=== PATIENT | male | born 1985 | race Caucasian/White ===

== ENCOUNTER 2016-07-04 10:51 | Inpatient (IN) | payer OTHER ==
[2016-07-04 11:50] VITALS: BMI 24.4
--- NOTE | 2016-07-04 14:17 | HP ---
CIWA Score - CIWA Score Nausea/Vomitin (N/V) Muscle Tremors: 4-Moderate,w/Arms Extend Anxiety: 4-Mod. Anxious/Guarded Agitation: 4-Moderately Restless Paroxysmal Sweats: 1-Minimal Palms Moist (HOT/COLD CHILLS) Orientation: 0-Oriented Tacttile Disturbances: 3-Moderate Itch/Numb/Burn Auditory Disturbances: 0-None Visual Disturbances: 0-None Headache: 1-Very Mild CIWA-Ar Total Score: [address] [facility] - HPI Chief Complaint: DETOX TX FOR ALCOHOL DEPENDENCE Allergies/Adverse Reactions: Allergies Allergy/AdvReac Type Severity Reaction Status Date / Time No Known Allergies Allergy Verified 07/04/16 12:46 History of Present Illness: 30 Y/O MALE WITH A HX OF ALCOHOL DEPENDENCE ON [facility] 110 MG PO DAILY SEEKING DETOX TX. PT WAS AT [facility] ER LAST NIGHT DUE TO WITHDRAWAL SX--NAUSEA, VOMITING,ABDOMINAL DISCOMFORT, ALCOHOL INTOXICATION. STATES HE RECIEVED IV FLUIDS AND IV MEDICATION AT THE ER. DISCHARGED THIS MORNING WITH RX FOR MAALOX AND PEPCID 20 MG PO BID. Exam Limitations: No Limitations - Ebola screening Have you traveled outside of the country in the last 21 days: No Have you had contact with anyone from an Ebola affected area: No Have you been sick,other than usual withdrawal symptoms: No Do you have a fever: No - Review of Systems Constitutional: Chills, Diaphoresis, Loss of Appetite, Night Sweats, Changes in sleep EENT: reports: Tearing, Nose Congestion, Dental Problems (MISSING TEETH) Respiratory: reports: No Symptoms reported Cardiac: reports: Chest Tightness (DUE TO ANXIETY) GI: reports: Constipated, Nausea, Poor Appetite, Poor Fluid Intake, Vomiting, Indigestion, Abdominal cramping : reports: No Symptoms Reported Musculoskeletal: reports: Back Pain, Joint Pain, Muscle Pain Integumentary: reports: No Symptoms Reported Neuro: reports: Headache, Tremors, Unsteady Gait, Dizziness Endocrine: reports: No Symptoms Reported Hematology: reports: No Symptoms Reported Psychiatric: reports: Orientated x3, Anxious, Depressed Other Systems: Reviewed and Negative Patient History - Patient Medical History Hx Anemia: No Hx Asthma: No Hx Chronic Obstructive Pulmonary Disease (COPD): No Hx Cardiac Disorders: No Hx Hypertension: No Hx Hypercholesterolemia: No HX Cerebrovascular Accident: No Hx Seizures: No Hx Diabetes: No Hx Gastrointestinal Disorders: Yes (acid reflux-RX FOR MAALOX AND PEPCID) Hx Genitourinary Disorders: No Hx Sexually Transmitted Disorders: No Hx Renal Disease (ESRD): No Hx Thyroid Disease: No Hx Human Immunodeficiency Virus (HIV): No (NEGATIVE HX) Hx Hepatitis C: Yes (NOT YET TREATED) Hx Depression: Yes (NO MEDS) Hx Suicide Attempt: No Hx Schizophrenia: No - Patient Surgical History Past Surgical History: No Hx Neurologic Surgery: No Hx Cataract Extraction: No Hx Cardiac Surgery: No Hx Lung Surgery: No Hx Breast Surgery: No Hx Breast Biopsy: No Hx Abdominal Surgery: No Hx Appendectomy: No Hx Cholecystectomy: No Hx Genitourinary Surgery: No Hx Section: No Hx Orthopedic Surgery: No Anesthesia Reaction: No - PPD History Previous Implant?: Yes Documented Results: Negative w/o proof PPD to be Administered?: Yes - Reproductive History Patient is a Female of Child Bearing Age (11 -55 yrs old): No (MALE) - Smoking Cessation Smoking history: Current every day smoker Have you smoked in the past 12 months: Yes Aproximately how many cigarettes per day: 10 Hx Chewing Tobacco Use: No Initiated information on smoking cessation: Yes 'Breaking Loose' booklet given: 07/04/16 - Substance & Tx. History Hx Alcohol Use: Yes (BEER/WINE) Hx Substance Use: Yes (COCAINE-SPORADIC USE) Substance Use Type: Alcohol, Cocaine Hx Substance Use Treatment: Yes ([facility]-DETOX) - Substances Abused Alcohol-beer/wine Route: Oral Frequency: Daily Amount used: 1 case/1 gal. Age of first use: 10 Date of Last Use: 07/04/16 Cocaine Route: Inhalation Frequency: 1-3 times last 30 days (SPORADIC USE) Amount used: 2-3 GMS Age of first use: 10 Date of Last Use: 07/02/16 Family Disease History - Family Disease History Family History: Denies Admission Physical Exam S - Vital Signs Vital Signs: Vital Signs - 24 hr 07/04/16 11:49 Temperature 97 F L Pulse Rate 80 Respiratory 20 Rate Blood Pressure 113/70 - Physical General Appearance: Yes: Moderate Distress, Irritable, Anxious HEENTM: Yes: EOMI, Normocephalic, SALTY, Pharynx Normal, Nasal Congestion Respiratory: Yes: Chest Non-Tender, Lungs Clear, Normal Breath Sounds, No Respiratory Distress Neck: Yes: No masses,lesions,Nodules, Supple, Trachea in good position Breast: Yes: Breast Exam Deferred Cardiology: Yes: Regular Rhythm, Regular Rate, S1, S2 Abdominal: Yes: Normal Bowel Sounds, Non Tender, Flat, Soft Genitourinary: Yes: Other (N/C) Back: Yes: Within Normal Limits Musculoskeletal: Yes: full range of Motion, Gait Steady Extremities: Yes: Normal Range of Motion, Non-Tender Neurological: Yes: plumbing manager II-XII NML intact, Fully Oriented, Alert, Motor Strength 5/5 Integumentary: Yes: Dry, Warm Lymphatic: Yes: Within Normal Limits - Diagnostic (1) Alcohol dependence with uncomplicated withdrawal Current Visit: Yes Status: Acute (2) Cocaine abuse Current Visit: Yes Status: Acute (3) History of hepatitis C Current Visit: Yes Status: Chronic (4) GERD (gastroesophageal reflux disease) Current Visit: Yes Status: Chronic Qualifiers: Esophagitis presence: without esophagitis Qualified Code(s): K21.9 - Gastro-esophageal reflux disease without esophagitis (5) Methadone maintenance therapy patient Current Visit: Yes Status: Chronic Cleared for Admission [facility] - Detox or Rehab [facility] Level of Care: Medically Managed Detox Regimen/Protocol: Librium S Breath Alcohol Content Breath Alcohol Content: 0 Urine Drug Screen - Results Drug Screen Negative: No Urine Drug Screen Results: RADHA-Cocaine, MTD-Methadone
[2016-07-04] MEDS ORDERED: MAGNESIUM HYDROX 2400MG/30ML ORAL SUSPENSION 30 ML CUP PO PRN (14:39)
[2016-07-04] MEDS ORDERED: ACETAMINOPHEN 325 MG TABLET (FP) PO PRN (14:39)
[2016-07-04] MEDS ORDERED: P-EPHED 60MG/TRIPROLIDI 2.5MG TABLET PO PRN (14:39)
[2016-07-04] MEDS ORDERED: MAG HYDROX/AL HYDROX/SIMETH 30 ML UNIT-DOSE CUP PO PRN (14:39)
[2016-07-04] MEDS ORDERED: MENTHOL/PHENOL 1 EACH UD MM PRN (14:39)
[2016-07-04] MEDS ORDERED: LOPERAMIDE HCL 2 MG CAPSULE PO PRN (14:39)
[2016-07-04] MEDS ORDERED: guaiFENesin/D-METHORPHAN HB 10 ML UNIT-DOSE CUPS PO PRN (14:39)
[2016-07-04] MEDS ORDERED: NICOTINE POLACRILEX 2 MG GUM BUC PRN (14:39)
[2016-07-04] MEDS ORDERED: MAGNESIUM CITRATE 300 ML BOTTLE PO PRN (14:39)
[2016-07-04] MEDS ORDERED: chlordiazePOXIDE HCL 25 MG CAPSULE PO ONE (14:50)
[2016-07-04] MEDS: NICOTINE 14 MG/24 HOURS TOPICAL PATCH TD SCH (15:29)
[2016-07-04] MEDS: IBUPROFEN 400 MG TABLET (FP) PO PRN (15:32)
[2016-07-04] MEDS: chlordiazePOXIDE HCL 25 MG CAPSULE PO SCH ×2 (18:02→22:54)
[2016-07-04 21:08] LABS: URINE APPEARANCE CLEAR; URINE BILIRUBIN NEGATIVE (NEGATIVE); URINE BLOOD NEGATIVE (NEGATIVE); URINE COLOR DKYELLOW; URINE GLUCOSE (UA) NEGATIVE (NEGATIVE); URINE KETONE TRACE (NEGATIVE); URINE LEUK ESTERASE NEGATIVE (NEGATIVE); URINE NITRITE NEGATIVE (NEGATIVE); URINE PROTEIN NEGATIVE (NEGATIVE); URINE UROBILINOGEN 2.0 E.U/dl E.U./dl (0.2-1.0)
[2016-07-04] MEDS ORDERED: GABAPENTIN 300 MG CAPSULE (FP) PO SCH (22:00)
[2016-07-04] MEDS: THIAMINE HCL 100 MG TABLET (FP) PO SCH (22:53)
[2016-07-04] MEDS: GABAPENTIN 300 MG CAPSULE (FP) PO SCH (22:54)
[2016-07-04] MEDS: diphenhydrAMINE HCL 50 MG CAPSULE PO PRN (22:54)
[2016-07-05] MEDS: chlordiazePOXIDE HCL 25 MG CAPSULE PO SCH ×4 (05:03→23:03)
[2016-07-05] MEDS: GABAPENTIN 300 MG CAPSULE (FP) PO SCH ×4 (06:09→23:03)
[2016-07-05] MEDS ORDERED: METHADONE HCL 10 MG TABLET PO ONE (09:52)
[2016-07-05 10:04] LABS: MCH 31.6 pg (25.7-33.7); MCHC 34.6 g/dl (32.0-35.9); MEAN CELL VOLUME 91.2 fl (80-96); MEAN PLT VOLUME 8.6 fl (7.5-11.1); PLATELET COUNT 124 K/MM3 (134-434); WHITE BLOOD COUNT 2.6 K/mm3 (4.0-10.0)
[2016-07-05] MEDS ORDERED: METHADONE 80 MG, METHADONE 30 MG PO ONE (10:05)
[2016-07-05] MEDS ORDERED: METHADONE HCL 10 MG TABLET ONE (10:20)
[2016-07-05] MEDS ORDERED: METHADONE HCL 40 MG DISPERSABLE TABLET ONE (10:20)
[2016-07-05] MEDS: PRENATAL VITAMINS W/ FOLIC ACID TABLET (FP) PO SCH (10:21)
[2016-07-05] MEDS: PANTOPRAZOLE 40 MG TABLET (FP) PO SCH (10:22)
[2016-07-05] MEDS: NICOTINE 14 MG/24 HOURS TOPICAL PATCH TD SCH (10:23)
--- NOTE | 2016-07-05 10:51 | PN ---
S CIWA - CIWA Score Nausea/Vomitin-Mild Nausea/No Vomiting Muscle Tremors: 4-Moderate,w/Arms Extend Anxiety: 3 Agitation: 4-Moderately Restless Paroxysmal Sweats: 3 Orientation: 0-Oriented Tacttile Disturbances: 0-None Auditory Disturbances: 0-None Visual Disturbances: 0-None Headache: 2-Mild CIWA-Ar Total Score: 17 [facility] Progress Note (SOAP) Subjective: nausea sweats shakes interrupted sleep body aches irritable Objective: 07/05/16 10:50 Vital Signs Temperature 96.8 F L 07/05/16 10:47 Pulse Rate 70 07/05/16 10:47 Respiratory Rate 18 07/05/16 10:47 Blood Pressure 113/61 07/05/16 10:47 O2 Sat by Pulse Oximetry (%) Laboratory Tests 07/04/16 07/05/16 15:00 06:00 WBC 2.6 L RBC 4.33 Hgb 13.7 Hct 39.5 MCV 91.2 MCHC 34.6 RDW 13.0 Plt Count 124 L MPV 8.6 Urine Color Dkyellow Urine Appearance Clear Urine pH 6.0 Urine Protein Negative Urine Glucose (UA) Negative Urine Ketones Trace H Urine Blood Negative Urine Nitrite Negative Urine Bilirubin Negative Urine Urobilinogen 2.0 e.u/dl Ur Leukocyte Esterase Negative labs pending awake/alert ambulating no acute distress Assessment: 07/05/16 10:52 withdrawal sx Plan: continue detox increase fluids reglan po labs pending
--- NOTE | 2016-07-05 11:45 | EKG ---
Test Reason : Blood Pressure : / mmHG Vent. Rate : 066 BPM Atrial Rate : 066 BPM P-R Int : 140 ms QRS Dur : 078 ms QT Int : 422 ms P-R-T Axes : 063 050 017 degrees QTc Int : 442 ms NORMAL SINUS RHYTHM NONSPECIFIC ST ABNORMALITY NO PREVIOUS ECGS AVAILABLE Confirmed by EDGAR LIN MD ([id number]) on 07/05/2016 11:45:07 AM Referred By: Confirmed By:EDGAR LIN MD
[2016-07-05 13:50] LABS: CALCIUM 8.6 mg/dL (8.5-10.1)
[2016-07-05 13:55] LABS: ALBUMIN 3.7 g/dl (3.4-5.0); ALK PHOS 77 U/L (45-117); ANION GAP 9 (8-16); BILIRUBIN,TOTAL 1.7 mg/dL (0.2-1.0); CO2 31 mmol/L (21-32); COCKROFT - GAULT 134.13; CREATININE 0.7 mg/dL (0.7-1.3); GLUCOSE,RANDOM 83 mg/dL (74-106); SGOT/AST 130 U/L (15-37); SGPT/ALT 101 U/L (12-78); TOT PROT 7.2 g/dl (6.4-8.2)
--- NOTE | 2016-07-05 14:46 | CONSULT ---
[facility] Psychiatric Consult - Data Date of interview: 07/05/16 Admission source: [facility] Identifying data: Readmission to [facility] for this 30 y/o male seeking detox treatment for alcohol,opioid and cocaine dependence.Patient is single without children,domiciled and reportedly employed. Substance Abuse History: - Smoking Cessation. Smoking history: Current every day smoker. Have you smoked in the past 12 months: Yes. Aproximately how many cigarettes per day: 10. Hx Chewing Tobacco Use: No. Initiated information on smoking cessation: Yes. 'Breaking Loose' booklet given: 07/04/16. - Substance & Tx. History. Hx Alcohol Use: Yes (BEER/WINE). Hx Substance Use: Yes (COCAINE -SPORADIC USE). Substance Use Type: Alcohol, Cocaine. Hx Substance Use Treatment: Yes ([facility]-DETOX). - Substances Abused. Alcohol-beer/wine. Route: Oral. Frequency: Daily. Amount used: 1 case/1 gal. Age of first use: 10. Date of Last Use: 07/04/16. Cocaine. Route: Inhalation. Frequency: 1- 3 times last 30 days (SPORADIC USE). Amount used: 2-3 GMS. Age of first use: 10. Date of Last Use: 07/02/16. Confimed by patient. Medical History: Hepatitis C,herniated disc,GERD and lower back pain.No reported allergies. Psychiatric History: Patient denies. Physical/Sexual Abuse/Trauma History: Patient denies. Additional Comment: Urine Drug Screen Results: RADHA-Cocaine, MTD-Methadone.Noted. Mental Status Exam - Mental Status Exam Alert and Oriented to: Time, Place, Person Cognitive Function: Good Patient Appearance: Well Groomed ([place] flag tattooed on right side of neck) Mood: Withdrawn, Anxious Affect: Mood Congruent Patient Behavior: Sedated (mildly sedated), Fatigued Speech Pattern: Clear, Appropriate Voice Loudness: Normal Thought Process: Goal Oriented Thought Disorder: Not Present Hallucinations: Denies Suicidal Ideation: Denies Homicidal Ideation: Denies Insight/Judgement: Poor Sleep: Fair Appetite: Good Muscle strength/Tone: Normal Gait/Station: Normal Psychiatric Findings - Problem List ([place] 1, 2,3) (1) Alcohol dependence with uncomplicated withdrawal Current Visit: Yes Status: Acute (2) Opioid dependence on agonist therapy Current Visit: Yes Status: Acute (3) Cocaine dependence Current Visit: Yes Status: Acute (4) Nicotine dependence Current Visit: Yes Status: Acute (5) Substance induced mood disorder Current Visit: Yes Status: Acute (6) GERD (gastroesophageal reflux disease) Current Visit: Yes Status: Chronic Qualifiers: Esophagitis presence: without esophagitis Qualified Code(s): K21.9 - Gastro-esophageal reflux disease without esophagitis (7) History of hepatitis C Current Visit: Yes Status: Chronic - Initial Treatment Plan Initial Treatment Plan: Psychoeducation.Detoxification in progress.Observation.
[2016-07-05] MEDS: hydrOXYzine PAMOATE 25 MG CAPSULE (FP) PO PRN (15:54)
[2016-07-05] MEDS: chlordiazePOXIDE HCL 25 MG CAPSULE PO PRN ×2 (15:54→19:52)
--- NOTE | 2016-07-05 19:19 | PN ---
[facility] Progress Note Note: Psychiatry Attending's note (addendum) : Met with Mr Gusman in the presence of nurse Maxi Whatley and counselor Carolina Hong. Issue : patient complains that " no psychiatrist saw me today about my medications." He has also complained of being " threatened " by the psychiatrist in the follow up interview. Clarification : Patient was evaluated by me between 11:30 AM and 12 N today.Lightly sedated on examination. Became more alert as interview progressed.He denied history of psychiatric hospitalizations. Denied taking psychotropic medications (although pharmacy claims indicate filled scripts for neurontin). Re-engaged by sports writer after he approached nursing staff later with request for a psychiatric evaluation. Patient was informed that he was already assessed in the morning,that he will be followed up if clinically indicated. According to nursing staff,Mr Gusman declared his intention to leave AMA ( against medical advice) if not prescribed Adderall. Met with the patient a second time at bedside.Reminded of first interview and informed of unit rules/regulations regarding medications/consults. I provided Mr Gusman with clues (foodtray was presented to him by sports writer at 12: 15 pm/being oriented to time by MD) to stimulate recall. Now,at this meeting,Mr Gusman is able to identify sports writer and aknowledge previous encounter in late morning. He,in this re-interview,reported past diagnosis of ADHD,Anxiety Disorder,MDD and complained about getting less gabapentin than usual. Current medication regimen is discussed with the patient : dose of neurontin will not exceed 2400 mg/day.He agreed with this plan. Mr Gusman was also inquisitive about scripts for adderall.He is informed that he will have to address that issue with an OPD psychiatrist. He is made aware that a referral will be provided to him at time of his discharge from this program. Patient became apologetic." I was confused earlier.Nobody threatened me." Patient changed his mind about leaving this program. He is willing to continue detox treatment at [facility].
[2016-07-05] MEDS: THIAMINE HCL 100 MG TABLET (FP) PO SCH (23:03)
[2016-07-05] MEDS: diphenhydrAMINE HCL 50 MG CAPSULE PO PRN (23:04)
[2016-07-06] MEDS: chlordiazePOXIDE HCL 25 MG CAPSULE PO SCH ×2 (05:53→11:45)
[2016-07-06] MEDS ORDERED: METHADONE HCL 40 MG DISPERSABLE TABLET ONE (05:54)
[2016-07-06] MEDS ORDERED: METHADONE HCL 10 MG TABLET ONE (05:54)
[2016-07-06] MEDS: METHADONE 80 MG, METHADONE 30 MG PO SCH (05:55)
[2016-07-06] MEDS ORDERED: METHADONE HCL 40 MG DISPERSABLE TABLET PO SCH (06:00)
[2016-07-06] MEDS: GABAPENTIN 300 MG CAPSULE (FP) PO SCH ×4 (07:43→22:29)
[2016-07-06] MEDS: PANTOPRAZOLE 40 MG TABLET (FP) PO SCH (11:43)
[2016-07-06] MEDS: PRENATAL VITAMINS W/ FOLIC ACID TABLET (FP) PO SCH (11:44)
[2016-07-06] MEDS: NICOTINE 14 MG/24 HOURS TOPICAL PATCH TD SCH (11:45)
[2016-07-06] MEDS: chlordiazePOXIDE HCL 25 MG CAPSULE PO PRN (12:27)
[2016-07-06] MEDS: IBUPROFEN 400 MG TABLET (FP) PO PRN (13:40)
[2016-07-06] MEDS: hydrOXYzine PAMOATE 25 MG CAPSULE (FP) PO PRN ×2 (13:40→19:44)
--- NOTE | 2016-07-06 13:41 | PN ---
[facility] CIWA - CIWA Score Nausea/Vomitin Muscle Tremors: 2 Anxiety: 2 Agitation: 2 Paroxysmal Sweats: 2 Orientation: 0-Oriented Tacttile Disturbances: 1-Very Mild Itch/Numbness Auditory Disturbances: 0-None Visual Disturbances: 2-Mild Sensitivity Headache: 2-Mild CIWA-Ar Total Score: 15 [facility] Progress Note (SOAP) Subjective: Shakes, sweats, abdominal cramps and sleep interruption Objective: 07/06/16 13:40 Vital Signs - 8 hr 07/06/16 06:00 Temperature 98.1 F Pulse Rate 76 Respiratory 18 Rate Blood Pressure 113/68 Laboratory Last Values WBC 2.6 K/mm3 (4.0-10.0) L 07/05/16 06:00 RBC 4.33 M/mm3 (4.00-5.60) 07/05/16 06:00 Hgb 13.7 GM/dL (11.7-16.9) 07/05/16 06:00 Hct 39.5 % (35.4-49) 07/05/16 06:00 MCV 91.2 fl (80-96) 07/05/16 06:00 MCHC 34.6 g/dl (32.0-35.9) 07/05/16 06:00 RDW 13.0 % (11.9-15.9) 07/05/16 06:00 Plt Count 124 K/MM3 (134-434) L 07/05/16 06:00 MPV 8.6 fl (7.5-11.1) 07/05/16 06:00 Sodium 136 mmol/L (136-145) 07/05/16 06:00 Potassium 4.1 mmol/L (3.5-5.1) 07/05/16 06:00 Chloride 96 mmol/L (98-107) L 07/05/16 06:00 Carbon Dioxide 31 mmol/L (21-32) 07/05/16 06:00 Anion Gap 9 (8-16) 07/05/16 06:00 BUN 8 mg/dL (7-18) 07/05/16 06:00 Creatinine 0.7 mg/dL (0.7-1.3) 07/05/16 06:00 Creat Clearance w eGFR > 60 (>60) 07/05/16 06:00 Random Glucose 83 mg/dL (74-106) 07/05/16 06:00 Calcium 8.6 mg/dL (8.5-10.1) 07/05/16 06:00 Total Bilirubin 1.7 mg/dL (0.2-1.0) H 07/05/16 06:00 AST 130 U/L (15-37) H 07/05/16 06:00 ALT 101 U/L (12-78) H 07/05/16 06:00 Alkaline Phosphatase 77 U/L (45-117) 07/05/16 06:00 Total Protein 7.2 g/dl (6.4-8.2) 07/05/16 06:00 Albumin 3.7 g/dl (3.4-5.0) 07/05/16 06:00 Urine Color Dkyellow 07/04/16 15:00 Urine Appearance Clear 07/04/16 15:00 Urine pH 6.0 (5.0-8.0) 07/04/16 15:00 Ur Specific [place] 1.020 (1.005-1.025) 07/04/16 15:00 Urine Protein Negative (NEGATIVE) 07/04/16 15:00 Urine Glucose (UA) Negative (NEGATIVE) 07/04/16 15:00 Urine Ketones Trace (NEGATIVE) H 07/04/16 15:00 Urine Blood Negative (NEGATIVE) 07/04/16 15:00 Urine Nitrite Negative (NEGATIVE) 07/04/16 15:00 Urine Bilirubin Negative (NEGATIVE) 07/04/16 15:00 Urine Urobilinogen 2.0 e.u/dl E.U./dl (0.2-1.0) 07/04/16 15:00 Ur Leukocyte Esterase Negative (NEGATIVE) 07/04/16 15:00 RPR Titer Nonreactive (NONREACTIVE) 07/05/16 06:00 labs noted Assessment: 07/06/16 13:41 withdrawal sx Plan: continue detox
[2016-07-06] MEDS: chlordiazePOXIDE 5 MG CAPSULE PO SCH ×2 (17:18→22:28)
[2016-07-06] MEDS: THIAMINE HCL 100 MG TABLET (FP) PO SCH (22:29)
[2016-07-06] MEDS: diphenhydrAMINE HCL 50 MG CAPSULE PO PRN (22:29)
[2016-07-07] MEDS ORDERED: METHADONE HCL 40 MG DISPERSABLE TABLET ONE (04:58)
[2016-07-07] MEDS ORDERED: METHADONE HCL 10 MG TABLET ONE (04:58)
[2016-07-07] MEDS: METHADONE 80 MG, METHADONE 30 MG PO SCH (05:34)
[2016-07-07] MEDS: chlordiazePOXIDE 5 MG CAPSULE PO SCH ×2 (05:34→10:09)
[2016-07-07] MEDS: GABAPENTIN 300 MG CAPSULE (FP) PO SCH ×4 (07:56→22:58)
[2016-07-07] MEDS: PANTOPRAZOLE 40 MG TABLET (FP) PO SCH (10:09)
[2016-07-07] MEDS: PRENATAL VITAMINS W/ FOLIC ACID TABLET (FP) PO SCH (10:09)
[2016-07-07] MEDS: NICOTINE 14 MG/24 HOURS TOPICAL PATCH TD SCH (10:10)
--- NOTE | 2016-07-07 11:55 | PN ---
[facility] Progress Note (SOAP) Subjective: Sweating,interrupted sleep,restless Objective: 07/07/16 11:55 Vital Signs - 8 hr 07/07/16 07/07/16 06:00 09:46 Temperature 98.6 F 98.1 F Pulse Rate 73 80 Respiratory 16 16 Rate Blood Pressure 100/59 117/73 Laboratory Last Values WBC 2.6 K/mm3 (4.0-10.0) L 07/05/16 06:00 RBC 4.33 M/mm3 (4.00-5.60) 07/05/16 06:00 Hgb 13.7 GM/dL (11.7-16.9) 07/05/16 06:00 Hct 39.5 % (35.4-49) 07/05/16 06:00 MCV 91.2 fl (80-96) 07/05/16 06:00 MCHC 34.6 g/dl (32.0-35.9) 07/05/16 06:00 RDW 13.0 % (11.9-15.9) 07/05/16 06:00 Plt Count 124 K/MM3 (134-434) L 07/05/16 06:00 MPV 8.6 fl (7.5-11.1) 07/05/16 06:00 Sodium 136 mmol/L (136-145) 07/05/16 06:00 Potassium 4.1 mmol/L (3.5-5.1) 07/05/16 06:00 Chloride 96 mmol/L (98-107) L 07/05/16 06:00 Carbon Dioxide 31 mmol/L (21-32) 07/05/16 06:00 Anion Gap 9 (8-16) 07/05/16 06:00 BUN 8 mg/dL (7-18) 07/05/16 06:00 Creatinine 0.7 mg/dL (0.7-1.3) 07/05/16 06:00 Creat Clearance w eGFR > 60 (>60) 07/05/16 06:00 Random Glucose 83 mg/dL (74-106) 07/05/16 06:00 Calcium 8.6 mg/dL (8.5-10.1) 07/05/16 06:00 Total Bilirubin 1.7 mg/dL (0.2-1.0) H 07/05/16 06:00 AST 130 U/L (15-37) H 07/05/16 06:00 ALT 101 U/L (12-78) H 07/05/16 06:00 Alkaline Phosphatase 77 U/L (45-117) 07/05/16 06:00 Total Protein 7.2 g/dl (6.4-8.2) 07/05/16 06:00 Albumin 3.7 g/dl (3.4-5.0) 07/05/16 06:00 Urine Color Dkyellow 07/04/16 15:00 Urine Appearance Clear 07/04/16 15:00 Urine pH 6.0 (5.0-8.0) 07/04/16 15:00 Ur Specific [place] 1.020 (1.005-1.025) 07/04/16 15:00 Urine Protein Negative (NEGATIVE) 07/04/16 15:00 Urine Glucose (UA) Negative (NEGATIVE) 07/04/16 15:00 Urine Ketones Trace (NEGATIVE) H 07/04/16 15:00 Urine Blood Negative (NEGATIVE) 07/04/16 15:00 Urine Nitrite Negative (NEGATIVE) 07/04/16 15:00 Urine Bilirubin Negative (NEGATIVE) 07/04/16 15:00 Urine Urobilinogen 2.0 e.u/dl E.U./dl (0.2-1.0) 07/04/16 15:00 Ur Leukocyte Esterase Negative (NEGATIVE) 07/04/16 15:00 RPR Titer Nonreactive (NONREACTIVE) 07/05/16 06:00 labs noted Assessment: 07/07/16 11:55 Withdrawal sx. Plan: Continue detox
[2016-07-07] MEDS: chlordiazePOXIDE HCL 25 MG CAPSULE PO PRN (12:52)
[2016-07-07] MEDS: chlordiazePOXIDE HCL 10 MG CAPSULE PO SCH ×2 (17:31→22:58)
[2016-07-07] MEDS ORDERED: CYCLOBENZAPRINE HCL 10 MG TABLET (FP) PO PRN (20:38)
--- NOTE | 2016-07-07 20:42 | PN ---
[facility] Progress Note Note: withdrawal ,aching pain,interrupted sleep,flexeril 10 mgs po tid prn
[2016-07-07] MEDS: THIAMINE HCL 100 MG TABLET (FP) PO SCH (22:58)
[2016-07-07] MEDS: diphenhydrAMINE HCL 50 MG CAPSULE PO PRN (22:58)
[2016-07-08] MEDS ORDERED: METHADONE HCL 10 MG TABLET ONE (04:37)
[2016-07-08] MEDS ORDERED: METHADONE HCL 40 MG DISPERSABLE TABLET ONE (04:37)
[2016-07-08] MEDS: METHADONE 80 MG, METHADONE 30 MG PO SCH (06:27)
[2016-07-08] MEDS: chlordiazePOXIDE HCL 10 MG CAPSULE PO SCH ×2 (06:29→10:11)
[2016-07-08] MEDS: GABAPENTIN 300 MG CAPSULE (FP) PO SCH ×2 (06:30→10:11)
[2016-07-08 06:32] VITALS: BP 105/54; PULSE 73; TEMP 97.7
--- NOTE | 2016-07-08 07:16 | PN ---
S Progress Note Note: constipated,fleet enema ordered as patient's requested
[2016-07-08] MEDS ORDERED: SODIUM PHOSPHATE/NA BIPHOS 133 ML ENEMA PR ONE (08:25)
--- NOTE | 2016-07-08 09:06 | DS ---
[facility] Detox Discharge Summary Admission Date: 07/04/16 Discharge Date: 07/08/16 - History Present History: Alcohol Dependence, Cocaine Dependence, MMTP - Physical Exam Results Vital Signs: Vital Signs Temperature 97.7 F 07/08/16 06:31 Pulse Rate 73 07/08/16 06:31 Respiratory Rate 18 07/08/16 06:31 Blood Pressure 105/54 07/08/16 06:31 O2 Sat by Pulse Oximetry (%) - Medication Discharge Medications: Ambulatory Orders Famotidine [Pepcid -] 20 mg PO DAILY 07/04/16 Gabapentin [Neurontin -] 1,200 mg PO HS 07/04/16 Gabapentin [Neurontin -] 800 mg PO Q8H 07/04/16 - Diagnosis (1) Alcohol dependence with uncomplicated withdrawal Current Visit: Yes Status: Chronic (2) Cocaine dependence Current Visit: Yes Status: Chronic Qualifiers: Substance use status: uncomplicated Qualified Code(s): F14.20 - Cocaine dependence, uncomplicated (3) Nicotine dependence Current Visit: Yes Status: Chronic Qualifiers: Nicotine product type: cigarettes Substance use status: uncomplicated Qualified Code(s): F17.210 - Nicotine dependence, cigarettes, uncomplicated (4) Opioid dependence on agonist therapy Current Visit: Yes Status: Acute (5) Substance induced mood disorder Current Visit: Yes Status: Acute (6) GERD (gastroesophageal reflux disease) Current Visit: Yes Status: Chronic Qualifiers: Esophagitis presence: without esophagitis Qualified Code(s): K21.9 - Gastro-esophageal reflux disease without esophagitis (7) History of hepatitis C Current Visit: Yes Status: Chronic (8) Methadone maintenance therapy patient Current Visit: Yes Status: Chronic - AMA Did Patient Leave Against Medical Advice: No
[2016-07-08] MEDS: PRENATAL VITAMINS W/ FOLIC ACID TABLET (FP) PO SCH (10:10)
[2016-07-08] MEDS: PANTOPRAZOLE 40 MG TABLET (FP) PO SCH (10:11)
[2016-07-08] MEDS: NICOTINE 14 MG/24 HOURS TOPICAL PATCH TD SCH (10:13)
== END 2016-07-08 12:18 | disposition home or self-care (01) | DRG 773 ==
LOC: YASAS 10:51 → Y6N 13:35
PROVIDERS: ADMIT Internal Medicine Addiction Medicine; ATTEND Internal Medicine Addiction Medicine
PROC: HZ2ZZZZ Detoxification Services for Substance Abuse Treatment (ICD-10-PCS; principal; 2016-07-08)
DX: F11.20 Opioid dependence, uncomplicated (principal); F10.230 Alcohol dependence with withdrawal, uncomplicated; F14.20 Cocaine dependence, uncomplicated; F19.24 Other psychoactive substance dependence with psychoactive substance-induced mood disorder; F17.210 Nicotine dependence, cigarettes, uncomplicated; F32.9 Major depressive disorder, single episode, unspecified; B18.2 Chronic viral hepatitis C; K21.9 Gastro-esophageal reflux disease without esophagitis
CPT/HCPCS: 36415; 80053; 81003; 85027; 86593; 93005; 93010

== ENCOUNTER 2019-11-26 16:22 | Inpatient (IN) | payer OTHER ==
--- NOTE | 2019-11-26 17:38 | B[facility].RME ---
Substance Use & Tx History - Substance Use History Alcohol Substance amount: 5 pints vodka Frequency of use: Daily Substance route: Oral Date of Last Use: 11/26/19 - Last Treatment Date of last treatment: 07/04/2016-07/08/2016 Where was last treatment: Detox Physical/Psych/Mental Status - Behavior Eye Contact: Normal - Cooperativeness Cooperativeness: Cooperative - Thinking Thought Processes: Logical Thought content: Future oriented - Physical Health Problems Is patient presently having any pain?: Yes (body aches) Does patient presently have any injuries (include location): No Does patient currently have a fever: No Is patient : No CIWA Nausea/Vomitin-Mild Nausea/No Vomiting Muscle Tremors: 3 Anxiety: 4-Mod. Anxious/Guarded Agitation: 4-Moderately Restless Paroxysmal Sweats: 2 Orientation: 0-Oriented Tacttile Disturbances: 0-None Auditory Disturbances: 0-None Visual Disturbances: 0-None Headache: 0-None Present CIWA-Ar Total Score: 14 Treatment Recommendation - Level of Care Level of Care: Opioid Treatment Program (OTP) (alcohol detoxification, on MMTP)
--- NOTE | 2019-11-26 17:54 | HP ---
CIWA Score Nausea/Vomitin-Mild Nausea/No Vomiting Muscle Tremors: 3 Anxiety: 4-Mod. Anxious/Guarded Agitation: 4-Moderately Restless Paroxysmal Sweats: 2 Orientation: 0-Oriented Tacttile Disturbances: 0-None Auditory Disturbances: 0-None Visual Disturbances: 0-None Headache: 0-None Present CIWA-Ar Total Score: 14 - Admission Criteria OASAS Guidelines: Admission for Medically Managed Detox: Requires at least one of the followin. CIWA greater than 12 2. Seizures within the past 24 hours 3. Delirium tremens within the past 24 hours 4. Hallucinations within the past 24 hours 5. Acute intervention needed for co occurring medical disorder 6. Acute intervention needed for co occurring psychiatric disorder 7. Severe withdrawal that cannot be handled at a lower level of care (continued vomiting, continued diarrhea, abnormal vital signs) requiring intravenous medication and/or fluids 8. Admitting History and Physical - Smoking History Smoking history: Current every day smoker Have you smoked in the past 12 months: Yes Aproximately how many cigarettes per day: 10 - Alcohol/Substance Use Hx Alcohol Use: Yes (BEER/WINE) Admission [facility] Chief Complaint: Seeking admission to detox from alcohol, on methadone maintenance therapy Allergies/Adverse Reactions: Allergies Allergy/AdvReac Type Severity Reaction Status Date / Time No Known Allergies Allergy Verified 11/26/19 19:51 History of Present Illness: 33 years old male with a long history of alcohol dependence is seeking admission to detox. His last admission was at [facility]. He reports that he drinks 5 pints Vodka daily. He has medical history of GERD, Hep. C (treated), psych history of depression, anxiety and ADHD. He denies suicidal ideation at this time. He is unemployed, homeless and denies any legal issues. 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 He is on methadone 110mg tablets oral daily. Dose is yet to be verified by the nurse. Exam Limitations: No Limitations - Ebola screening Have you traveled outside of the country in the last 21 days: No Have you had contact with anyone from an Ebola affected area: No Have you been sick,other than usual withdrawal symptoms: No Do you have a fever: No - Review of Systems Constitutional: Chills, Malaise, Changes in sleep EENT: reports: No Symptoms Reported Respiratory: reports: No Symptoms reported Cardiac: reports: No Symptoms Reported GI: reports: Nausea, Poor Appetite, Poor Fluid Intake, Abdominal cramping : reports: No Symptoms Reported Musculoskeletal: reports: Back Pain, Muscle Pain Integumentary: reports: Dryness, Flushing Neuro: reports: Tremors Endocrine: reports: No Symptoms Reported Hematology: reports: No Symptoms Reported Psychiatric: reports: Mood/Affect Appropiate, Anxious Other Systems: Reviewed and Negative Patient History - Patient Medical History Hx Anemia: No Hx Asthma: No Hx Chronic Obstructive Pulmonary Disease (COPD): No Hx Cardiac Disorders: No Hx Hypertension: No Hx Hypercholesterolemia: No HX Cerebrovascular Accident: No Hx Seizures: No Hx Diabetes: No Hx Gastrointestinal Disorders: Yes (GERD) Hx Genitourinary Disorders: No Hx Sexually Transmitted Disorders: No Hx Renal Disease (ESRD): No Hx Thyroid Disease: No Hx Human Immunodeficiency Virus (HIV): No (Negative 2020) Hx Hepatitis C: Yes (Treated) Hx Depression: Yes (+ Anxiety - Not on medication) Hx Suicide Attempt: No (Denies suicidal ideation at this time.) Hx Bipolar Disorder: No Hx Schizophrenia: No - Patient Surgical History Past Surgical History: No Hx Neurologic Surgery: No Hx Cataract Extraction: No Hx Cardiac Surgery: No Hx Lung Surgery: No Hx Abdominal Surgery: No Hx Appendectomy: No Hx Cholecystectomy: No Hx Genitourinary Surgery: No Hx Orthopedic Surgery: No Anesthesia Reaction: No - PPD History Previous Implant?: Yes Documented Results: Negative w/o proof PPD to be Administered?: Yes - Reproductive History Patient is a Female of Child Bearing Age (11 -55 yrs old): No (Male) - Smoking Cessation Smoking history: Current every day smoker Have you smoked in the past 12 months: Yes Aproximately how many cigarettes per day: 20 Hx Chewing Tobacco Use: No Initiated information on smoking cessation: Yes 'Breaking Loose' booklet given: 11/26/19 - Substance & Tx. History Hx Alcohol Use: Yes Hx Substance Use: Yes Substance Use Type: Alcohol, Cocaine, Prescribed (Methadone 110mg daily with [place]) Admission Physical Exam [facility] - Physical General Appearance: Yes: Moderate Distress, Tremorous, Irritable, Anxious HEENTM: Yes: Within Normal Limits Respiratory: Yes: Lungs Clear, Normal Breath Sounds, No Respiratory Distress Neck: Yes: Within Normal Limits Breast: Yes: Breast Exam Deferred Cardiology: Yes: Within Normal Limits Abdominal: Yes: Normal Bowel Sounds, Soft Genitourinary: Yes: Within Normal Limits Back: Yes: Normal Inspection Musculoskeletal: Yes: Back pain Extremities: Yes: Tremors Neurological: Yes: Within Normal Limits Integumentary: Yes: Warm Lymphatic: Yes: Within Normal Limits - Diagnostic (1) Depression Current Visit: Yes Status: Acute (2) Anxiety Current Visit: Yes Status: Chronic (3) ADHD Current Visit: Yes Status: Chronic Qualifiers: Attention deficit-hyperactivity disorder type: unspecified Qualified Code(s): F90.9 - Attention-deficit hyperactivity disorder, unspecified type (4) Alcohol dependence with uncomplicated withdrawal Current Visit: Yes Status: Acute (5) Cocaine dependence Current Visit: Yes Status: Chronic Qualifiers: Substance use status: uncomplicated Qualified Code(s): F14.20 - Cocaine dependence, uncomplicated (6) GERD (gastroesophageal reflux disease) Current Visit: Yes Status: Chronic Qualifiers: Esophagitis presence: without esophagitis Qualified Code(s): K21.9 - Gastro-esophageal reflux disease without esophagitis (7) History of hepatitis C Current Visit: Yes Status: Chronic (8) Methadone maintenance therapy patient Current Visit: Yes Status: Chronic (9) Nicotine dependence Current Visit: Yes Status: Chronic Qualifiers: Nicotine product type: cigarettes Substance use status: uncomplicated Qualified Code(s): F17.210 - Nicotine dependence, cigarettes, uncomplicated Cleared for Admission [facility] - Detox or Rehab [facility] Level of Care: Medically Managed Detox Regimen/Protocol: Librium Claeared for Rehab Admission: No Breathalyzer - Breathalyzer Breathalyzer: 0 Urine Drug Screen - Test Device Lot number: [id number] Expiration date: 06/08/21 - Control Is test valid?: Yes - Results Drug screen NEGATIVE: No Urine drug screen results: RADHA-Cocaine, MOP-Opiates, MTD-Methadone Inpatient Rehab Admission - Rehab Decision to Admit Inpatient rehab admission?: No
[2019-11-26] MEDS ORDERED: IBUPROFEN 400 MG TABLET (FP) PO PRN (18:18)
[2019-11-26] MEDS ORDERED: BISMUTH SUBSALICYLATE 524 MG/30 ML UD PO PRN (18:18)
[2019-11-26] MEDS ORDERED: MENTHOL/PHENOL 1 EACH UD MM PRN (18:18)
[2019-11-26] MEDS ORDERED: MAGNESIUM HYDROX 2400MG/30ML ORAL SUSPENSION 30 ML CUP PO PRN (18:18)
[2019-11-26] MEDS ORDERED: MAGNESIUM CITRATE 300 ML BOTTLE PO PRN (18:18)
[2019-11-26] MEDS ORDERED: ONDANSETRON *ODT* 4 MG TABLET SL PRN (18:18)
[2019-11-26] MEDS ORDERED: MAG HYDROX/AL HYDROX/SIMETH 30 ML UNIT-DOSE CUP PO PRN (18:18)
[2019-11-26] MEDS ORDERED: ACETAMINOPHEN 325 MG TABLET (FP) PO PRN (18:18)
[2019-11-26] MEDS ORDERED: chlordiazePOXIDE HCL 25 MG CAPSULE PO PRN (19:34)
--- OUTSIDE RECORDS SUMMARY | 2019-11-26 20:07 | XMS ---
:1985 Author Organization [facility] Care Team Providers Name Role Phone MADAY CASTILLO DO Unavailable Unavailable MD David Quiroz Unavailable Unavailable Juan Luis Flores Unavailable Unavailable BLUE MNOTERO MD Unavailable Unavailable Lesly MONTERO MD Unavailable Unavailable Lesly MONTERO MD Unavailable Unavailable Lesly MONTERO MD Unavailable Unavailable Re-disclosure Warning The records that you are about to access may contain information from federally- assisted alcohol or drug abuse programs. If such information is present, then the following federally mandated warning applies: This information has been disclosed to you from records protected by federal confidentiality rules (42 CFR part 2). The federal rules prohibit you from making any further disclosure of this information unless further disclosure is expressly permitted by the written consent of the person to whom it pertains or as otherwise permitted by 42 CFR part 2. A general authorization for the release of medical or other information is NOT sufficient for this purpose. The Federal rules restrict any use of the information to criminally investigate or prosecute any alcohol or drug abuse patient.The records that you are about to access may contain highly sensitive health information, the redisclosure of which is protected by Article 27-F of the [facility] Public Health law. If you continue you may haveaccess to information: Regarding HIV / AIDS; Provided by facilities licensed or operated by the [facility] Office of Mental Health; or Provided by the [facility] Office for People With Developmental Disabilities. If such information is present, then the following [facility] mandated warning applies: This information has been disclosed to you from confidential records which are protected by state law. State law prohibits you from making any further disclosure of this information without the specific written consent of the person to whom it pertains, or as otherwise permitted by law. Any unauthorized further disclosure in violation of state law may result in a fine or assisted sentence or both. A general authorization for the release of medical or other information is NOT sufficient authorization for further disclosure. Allergies and Adverse Reactions Type Description Substance Reaction Status Data Source(s ) Drug allergy No Known No Known [facility] Allergies Allergies [facility] No information No information No information No information Centricity available. available. available. available. No [facility]. Healthcare) No information available. Encounters Encounter Providers Location Date Indications Data Source(s ) Outpatient Attender: BLUE [facility] 08/10/2018 [id number] [place] MONTERO MD 11:49:00 AM Hospital EDT [id number] Inpatient Attender: MD Hernandez 5T-3T 07/31/2018 L03.317 [facility] Ibander: Juan Luis 06:25:00 PM EDT Cellulit is of Junior FloresAdmitter: MD Giron 08/01/2018 left buttock H ospital David Quiroz 08:25:00 PM EDT L03.317 Cellulitis of left buttock Patient discharged. Emergency Attender: MADAY 07/31/2018 12:05:00 ABCESS/FEVE R [facility] JONATHAN DO PM EDT - 07/31/2018 Hospi [facility] 04:34:00 PM EDT ABCESS/FEVER Patient discharged. P 07/31/2018 11:56:00 AM EDT ABCESS/FE JUAN DAVID [facility] ABCESS/FEVER P 07/31/2018 11:54:00 AM EDT ABCESS/FE JUAN DAVID [facility] ABCESS/FEVER Medications Medication Brand Start Product Dose Route Administrative Pharmacy [facility] Indications Reaction Description Data Name Date Form Instructions Instructions Source(s) Sulfamethox sulfam ORAL complet [facility] azole 800 ethoxa 2019 {tab( ed Health MG / zole-t 01:24: s)} System Trimethopri rimeth 54 PM m 160 MG oprim EDT Oral Tablet 800 sulfamethox mg-160 azole-trime mg thoprim 800 oral mg-160 mg tablet oral tablet Docusate docusa ORAL complet [facility] Sodium 50 te-sen 2019 {tab( ed Health MG / na 50 01:24: s)} System sennosides, mg-8.6 48 PM PENITENTIARY 8.6 MG mg EDT Oral Tablet oral docusate-se tablet nna 50 mg-8.6 mg oral tablet Mupirocin mupiro TOPICA complet [facility] 0.02 MG/MG rafa 2% 2018 {alicia} L ed Health Topical topica 01:24: System Ointment l 46 PM mupirocin ointme EDT 2% topical nt ointment Methadone methad 1 ORAL complet Tomás kelley methadone one [facility] No complet No Centricity information ed information ( [facility] available. available. [facility] ) gabapentin gabape TABLET 1 ORAL complet [facility] 800 MG Oral ntin {tab( ed Health Tablet 800 mg s)} System gabapentin oral 800 mg oral tablet tablet gabapentin GABAPE TABLET 800 complet [address] [facility] 800 MG Oral NTIN ed DAY [place] Tablet 800 MG Hospital - GABAPENTIN TABLET [place] [facility] 800 MG TABLET Methadone METHAD TABLET 100 complet EVERY DA Y [facility] Hydrochlori ONE ed [place] de 10 MG HCL 10 Hospital - Oral Tablet MG [place] METHADONE TABLET HCL 10 MG TABLET Insurance Providers Payer name Policy type Policy ID Covered Covered democrat's Policy P anna / Coverage democrat ID relationship to [place] Inf ormation type [place] MEDICAID [id number] SP [id number] [facility] DEPARTMENT [id number] SP [id number] [facility] Medicaid [id number] 1 [id number] [facility] DEPART[place] [id number] [place] [id number] 751 [place] Problems, Conditions, and Diagnoses Code Display Name Description Problem Type Effective Data Sour ce(s) Dates [id number] No information No information Cent[place] city available. available. ([facility]) B19.20 Unspecified viral Hepatitis C virus Diagnosis 07/31/2018 [facility] hepatitis C infection without 08:53:00 PM [place] without hepatic hepatic coma EDT [facility] coma R56.9 Unspecified Convulsions Diagnosis 07/31/2018 S - [facility] convulsions 08:53:00 PM [facility] F11.20 Opioid dependence, Uncomplicated Diagnosis 07/31/2018 S - [facility] uncomplicated opioid dependence 08:53:00 PM [facility] L03.317 Cellulitis L03.317 Diagnosis 07/31/2018 [facility] left buttock Cellulitis of 08:53:00 PM [place] left buttock EDT Hospital L03.317 Cellulitis of Cellulitis of Diagnosis 07/31/2018 [facility] unt buttock left buttock 08:53:00 PM [facility] ABCESS TO L BUTTOX ABCESS TO L Diagnosis 07/31/2018 S - [facility] BUTTOX 06:25:00 PM [facility] L03.317 Cellulitis of CELLULITIS OF Diagnosis 07/31/2018 [facility] buttock BUTTOCK 12:05:00 PM [facility] A41.9 Sepsis, SEPSIS, Diagnosis 07/31/2018 [facility] unspecified UNSPECIFIED 12:05:00 PM [place] organism ORGANISM [facility] Surgeries/Procedures Procedure Description Date Indications Data Source(s) EKG,ROUTINE 12 LEAD EKG,ROUTINE 12 LEAD 07/31/2018 S rasta Pulliam [place] 12:00:00 AM [facility] EDT CHEST 1 VIEW AP CHEST 1 VIEW AP 07/31/2018 [facility] ROUTINE PORT ROUTINE PORT 12:00:00 AM [facility] EDT Results ID Date Data Source [id number] 08/12/2018 08:25:00 AM EDT [facility] Name: ROSE CHASE DIN: [id number] Facil ity: [facility] : 1985 Physician: Blue castillo MD Date of Service: 08/10/18 EXAM: CHEST The lungs, me diastinum and chest wall are unremarkable. cc: Dictation Date/Time: 08/11/18 1 646 <Electronically signed by Ora Hernandez MD> Transcribed Date/ Time: 08/12/1882408/12/18829 Manager Of Corporate: ESTEE SMITH Name Value Range Interpretation Code Description Data Jenni rce(s) Supporting Document(s ) ID Date Data Source [id number] 08/01/2018 12:07:[address] [facility] DEPARTMENT OF DIAGNOSTIC IMAGING Pat ient Name: ROSE CHASE : 1985 Patient Addr.: [facility] [address] [place] [address] MR#: [id number] [place] [address] Patient Phone #: [phone] Dictate Date: 08/02/18815 Ordering Jameel: SAVAGE SIMPSON ID: REJI Trans Date: Copies to: ; CC ID: ; Patient Loc: L.ER Report #: [id number] Order Number(s): [id number] Site: [facility] Exam Date/Time: 1- Exam: EKG, Routine 12 Lead PROCEDURE: EKG, 12 LEAD ROUT INE COMPARISON: None. Ventricular Rate: 74.00 BPM CA Inter lori: 138.00 ms QRS Duration: 80.00 ms PRT [place]: 59 45 25 QT/QTC 37 8/419 CONCLUSION: NORMAL SINUS RHYTHM NORMAL ECG Dictated by: Milton Little MD on 08/02/2018 at 8:16 AM Approved by: Pa Little MD on 04/2018 at 8:16 AM APPENDIX: Signed: 08/02/18815 PA LITTLE MD TRN: TBY Name Value Range Interpretation Code Description Data Jenni rce(s) Supporting Document(s ) ID Date Data Source [id number] 08/01/2018 06:20:00 AM EDT [facility] Name Value Range Interpretation Description Data Sup porting Code Source(s) Document(s ) Leukocytes 5.4 4.8 - Normal (applies WBC Count [facility] [#/volume] in {10^3_u 10.8 to non-numeric Health Unspecified L} 10^3 uL results) System specimen by Automated count Erythrocytes 4.00 4.40 - Below low normal RBC Count [facility] [#/volume] in {10^6_u 5.90 Health Blood by L} 10^6 uL System Automated count Hemoglobin 12.2 14.0 - Below low normal Hemoglobin [facility] [Mass/volume] in {gm/dL} 18.0 Health Blood gm/dL System Hematocrit 36.5 % 41.0 - Below low normal Hematocrit [facility] [Volume 53.0 % Health Fraction] of System Blood Erythrocyte mean 91.3 fl 83.0 - Normal (applies MCV [facility] corpuscular 98.0 fl to non-numeric Health volume [Entitic results) System volume] by Automated count Erythrocyte mean 33.4 33.0 - Normal (applies MCHC [facility] corpuscular {gm/dL} 37.0 to non-numeric Health hemoglobin gm/dL results) System concentration [Mass/volume] by Automated count Erythrocyte 12.7 % 11.5 - Normal (applies RDW-CV [facility] distribution 14.5 % to non-numeric Health width [Entitic results) System volume] by Automated count Erythrocyte mean 30.5 pg 26.0 - Normal (applies MCH [facility] corpuscular 34.0 pg to non-numeric Health hemoglobin results) System [Entitic mass] by Automated count Platelet mean 10.9 fl 7.4 - Above high MPV [facility] volume [Entitic 10.4 fl normal Health volume] in Blood System by Automated count Platelets 119 130 - Below low normal Platelet Count [facility] [#/volume] in {10^3_u 400 Health Plasma by L} 10^3 uL System Automated count Eosinophils 0.19 0.05 - Normal (applies Eosinophil # [facility] [#/volume] in {10^3_u 0.30 to non-numeric Health Blood L} 10^3 uL results) System Monocytes 0.4 0.3 - Normal (applies Monocyte # [facility] [#/volume] in {10^3_u 0.9 to non-numeric Health Blood by Manual L} 10^3 uL results) System count Lymphocyte # 1.3 1.0 - Normal (applies Lymphocyte # [facility] {10^3_u 5.5 to non-numeric Health L} 10^3 uL results) System Basophils 0.03 0.00 - Normal (applies Basophil # [facility] [#/volume] in {10^3_u 0.10 to non-numeric Health Blood by L} 10^3 uL results) System Automated count Neutrophils/100 63.5 % 55.0 - Normal (applies Neutrophil % Tomás kelley leukocytes in 75.0 % to non-numeric Health Blood by results) System Automated count Neutrophils 3.4 2.0 - Normal (applies Neutrophil # [facility] [#/volume] in {10^3_u 8.1 to non-numeric Health Body fluid L} 10^3 uL results) System Eosinophils/100 3.5 % 0.0 - Normal (applies Eosinophil % Tomás kelley leukocytes in 4.0 % to non-numeric Health Unspecified results) System specimen Lymphocytes 24.9 % 21.0 - Normal (applies Lymphocyte % [facility] [#/volume] in 51.0 % to non-numeric Health Blood by results) System Automated count Immature 0.4 % 0.0 - Normal (applies Immature [facility] Granulocytes % 0.8 % to non-numeric Granulocytes % Healt h results) System Monocytes/100 7.1 % 6.0 - Normal (applies Monocyte % [facility] leukocytes in 9.0 % to non-numeric Health Blood results) System Basophils/100 0.6 % 0.0 - Normal (applies Basophil % [facility] leukocytes in 1.0 % to non-numeric Health Unspecified results) System specimen by Manual count Nucleated 0.0 0.0 - Normal (applies NRBC % [facility] erythrocytes {/100_W 0.0 to non-numeric Health [#/volume] in BC} /100 results) System Body fluid WBC NRBC # 0.00 0.90 - Below low normal NRBC # [facility] {10^3_u 11.20 Health L} 10^3 uL System Immature 0.02 0.00 - Normal (applies Immature [facility] Granulocytes # {10^3_u 0.09 to non-numeric Granulocytes # Healt h L} 10^3 uL results) System ID Date Data Source [id number] 08/01/2018 06:20:00 AM EDT [facility] Name Value Range Interpretation Description Data Sup porting Code Source(s) Document(s ) Sodium 141 137 - Normal (applies Sodium, Serum [facility] [Moles/volume] in mmol/L 145 to non-numeric Health Serum or Plasma mmol/L results) System Chloride 104 98 - Normal (applies Chloride, [facility] [Moles/volume] in mmol/L 107 to non-numeric Serum Health Serum or Plasma mmol/L results) System Potassium 4.6 3.6 - Normal (applies Potassium, [facility] [Mass/volume] in mmol/L 5.0 to non-numeric Serum Health Serum or Plasma mmol/L results) System Glucose 86 75 - Normal (applies Glucose, [facility] [Mass/volume] in mg/dL 110 to non-numeric Serum Health Serum or Plasma mg/dL results) System Total Protein 6.4 6.3 - Normal (applies Total Protein [facility] mg/dl 8.2 to non-numeric Health mg/dl results) System Carbon dioxide, 30.0 22.0 - Normal (applies CO2, Serum [facility] total mmol/L 30.0 to non-numeric Health [Moles/volume] in mmol/L results) System Serum or Plasma Creatinine 0.70 0.80 - Below low normal Creatinine, [facility] [Mass/volume] in mg/dl 1.50 Serum Health Serum or Plasma mg/dl System Urea nitrogen 8 mg/dl 9 - 21 Below low normal Blood Urea [facility] [Mass/volume] in mg/dl Nitrogen, Health Serum or Plasma Serum System Alkaline 67 38 - Normal (applies Alkaline [facility] phosphatase {IU/L} 126 to non-numeric Phosphatase, Health isoenzymes IU/L results) Serum System [Enzymatic activity/volume] in Serum or Plasma by Heat stability Direct Bilirubin 0.5 0.0 - Above high Direct [facility] mg/dl 0.4 normal Bilirubin Health mg/dl System Bilirubin.total 0.9 0.2 - Normal (applies Bilirubin, [facility] [Mass/volume] in mg/dl 1.3 to non-numeric Serum Total Health Serum or Plasma mg/dl results) System Albumin 3.9 3.9 - Normal (applies Albumin, [facility] [Mass/volume] in {gm/dl} 5.0 to non-numeric Serum Health Serum or Plasma gm/dl results) System Aspartate 30 5 - 40 Normal (applies Aspartate [facility] aminotransferase {IU/L} IU/L to non-numeric Transaminase, Heal th [Enzymatic results) Serum System activity/volume] in Serum or Plasma by With P-5'-P I. Phosphorus 4.0 2.5 - Normal (applies I. Phosphorus [facility] mg/dl 4.5 to non-numeric Health mg/dl results) System Calcium 9.0 8.4 - Normal (applies Calcium, [facility] [Mass/volume] in mg/dl 10.2 to non-numeric Total Serum Health Serum or Plasma mg/dl results) System A/G Ratio 1.56 Normal (applies A/G Ratio [facility] to non-numeric Health results) System Alanine 57 7 - 56 Above high Alanine [facility] aminotransferase {IU/L} IU/L normal Aminotransfer Health [Enzymatic ase, Serum System activity/volume] in Serum or Plasma Urate 2.9 3.5 - Below low normal Uric Acid, [facility] [Mass/volume] in mg/dl 8.5 Serum Health Serum or Plasma mg/dl System Anion gap in Serum 7.00 8.00 - Below low normal Anion Gap [facility] or Plasma mmol/L 12.00 Health mmol/L System Glomerular > 90 Normal (applies GFR [facility] filtration to non-numeric Health rate/1.73 sq results) System M.predicted [Volume Rate/Area] in Serum or Plasma by Creatinine-based formula (CKD-EPI) eGFR will provide clinicians with a more accurate indicator of renal function then the serum creatinine. The eGFR is automa tically calculated from an empiric formula (endorsed by the National [employer] ion) which incorporates age, sex, and race.Clinicians may notice surprisingly low GFR's with serum creatinine valueswithin normal range- particularly in elderly wo men (with low muscle mass).In the hospital setting, the eGFR should add an element of safety in drug dosing, in assessing the risk of IV contrast administration, and in assessing vascular risk.The NKF staging system is as follows:Normal: eGFR >90 with no kidney markersStage 1: eGFR >90 with kidney markers*Stage 2: eGFR 60- 89Stage 3: eGFR 30-59Stage 4: eGFR 15-29Stage 5: eGFR <15 (usually requir ing dialysis)*Markers include: Proteinuria, Hematuria, abnormal imaging-studies, or other blood or urine test abnormalities ID Date Data Source [id number] 07/31/2018 04:48:00 PM EDT [facility]IENT: ROSE CHASE STATUS: REG ERACCOUNT #: [id number] SERVICE UNIT #: [id number] LOCAT ION: JOHNEX: Milton PCP PHYS: NO DOCTORDOB: [birth year] AG E: 34 General Medical HPI Current HistoryMeds taken at homeReporte d MedicationsGABAPENTIN 800 MG PO TID METHADONE HCL 100 MG PO DAILY Allergi esCoded Allergies:No Known Allergies (07/31/18) GeneralChief Complaint SEPSI S (R/O) ADULTGreet [id number] Date seen 07/31/18Time [facility] 1226[facility] Past Medical/Family HistoryPrior Medical History SEIZURES HEP CFamily historyNo K nown Family History. Social history [facility] + Hx IVDA (las t used 1 yr ago) History of Present IllnessInitial Mwzptlac32 y/o incarcerat ed male w/ a PMHx of Hep C, abscess, and seizure disorder [facility]/o growing abscess to theLT buttock onset three day s ago, w/ associated fever, body aches, and generalized CRUZ. States it started as a p imple three days ago which he attempted to pop, now w/increasing pain and growth to the abscess. Denies V/D, or any other Sx. Hx of similar in the past w/ I D to LT butt ock on 04/2018 w/o return of abscess. On Methadone maintenance, previous Hx IVDA w/ shared needles, recent rapid HIV negative one month ago. CODE SEPSIS 1219 BASED O N TACHYCARDIA AND FEVER Portions of this section were scribed by CIARRA PARK on 07/31/18 at 1229 Review of SystemsCommentROS:Const: reports fevers, chills, fatigueENT: denies sore throat, difficulty swallowingCV: denies chest pa in, palpitationsPulm: denies cough, SOB, difficulty breathingAbd: denies abdomina l pain, nausea, vomiting, diarrhea, constipationMSK: denies muscular pain, s welling, joint pain or joint swellingSkin: reports abscess LT buttock. denies itchi ng Neuro: denies weakness, denies sensory change . reports CRUZ Portions of this sec tion were scribed by CIARRA PARK on 07/31/18 at 1520 Physical ExamNursing as sessment reviewed YesVital SignsVital Signs Date Time Temp Pulse Resp B/P B/P Pulse O2 O2 Flow FiO2 Mean O x Delivery Rate 07/31 1633 97.9 71 18 124/67 99 07/31 16 00 97.9 70 16 123/73 100 07/31 1545 66 13 114/59 100 07/31 1530 71 12 119/62 98 07/31 1516 73 16 115/65 99 07/31 1506 94 20 100 07/31 1502 80 20 100 07/31 1455 97.9 82 18 104/64 100 07/31 1446 70 10 104/64 95 1431 74 12 105/66 93 07/31 1416 76 11 10 7/69 93 07/31 1401 71 10 111/69 97 07/31 1346 72 18 113/73 100 07/31 1332 78 20 119/66 100 07/31 1317 74 20 130/61 100 07/31 1304 83 18 116/78 100 07/31 1245 101.3 90 18 128/82 99 07/31 1236 86 18 128/82 98 07/31 1223 101.8 104 20 138/88 95 07/31 1220 101.8 104 20 138/88 95 Physical ExamCommentPE:GEN: awake, alert, NAD, appears comfortableEyes: ani cteric, PERRLA, EOMIHENT: MMM, no erythema or swelling. Neck is suppleCV: RRR, no m/r/ g, no JVDResp: Talking in complete sentences, no respiratory distress, lung sounds CTA B/LAbd: Soft non-tender to palp, no rebound or guarding, no distention, NBSExt: no e xt swelling, full ROM, no calf swelling or erythema. NVID, soft compartments.Neuro: awake, alert, speaking clearly, oriented x3, full strength and sensation inall ex, am bulatory, distal pulses 2+ all 4 extremities, brisk cap refillSkin: well demarcated ce llulitis rash to the LT buttock w/ induration, centralizedwhite pimple, no fluctuance, sparing of the perianal skin, tender and hot to touch. Normal color, w arm distal extremities, no rashPsych: Age appropriate, normal affect Portions of this section were scribed by CIARRA PARK on 07/31/18 at 1442 Sepsis Focused Exam Performed? Sepsis Focused ExamSepsis focused exam performed: Yes Portions of this sec tion were scribed by CIARRA PARK on 07/31/18 at 1320 Last lab resultsPulse o x normalTime EKG performed 1224EKG Normal Sinus Rhythm (HR 74 bpm), no acute Q/ST/ T changes, Interpreted and signed by Dr. Castillo.Other Imaging [address] [address] DEPARTMENT OF DIAGNOSTI C IMAGING Patient Name: ROSE CHASE : 1985Patient Addr.: [facility], [address] [place] [address] MR#: [id number] [place] [address] Phone #: [phone] Dictate Date: 07/31/18 Jennifer2Omike Jorgensen: Karis SIMPSON ID: LEVET Trans Date:Copies to: LESLEY SIMPSON C ID: [Patient Loc: [place] #: [id number] Number(s): [id number] [facility]: [facility]18 1250 Exam: CLARITA ST 1 VIEW AP PORTABLE ROUT PROCEDURE: CHEST 1 VIEW, AP PORTABLE ROUTINE LINDSAY RISON: None. INDICATIONS: Sepsis VIEWS: Single-view chest FINDINGS: LUNGS: Normal. No significant pulmonary parenchymal abnormalities. VASCULATURE: Normal. U nremarkable pulmonary vasculature. CARDIAC: Normal. No cardiac silhouette abnormali ty or cardiomegaly. MEDIASTINUM: Normal. No visible mass or adenopathy. PLEURA: Normal. No effusion or pleural thickening. OTHER: Negative. CONCLUSION: 1. No ac tive pulmonary disease. Dictated by: Gareth Shepherd DO on 07/31/2018 at 2:02 PM Ap proved by: Gareth Shepherd DO on 07/31/2018 at 2:02 PM Signed: 07/31/18 1402 This is a Signed report >>>>>>>>>>>>>>>>>>>>>>>>>> >>>>>>>>>>>> END OF PAGE <<<<<<<<<<<<<<<<<<<<<<<<<<<<<<<<<<<<< < PATIENT'S NAME: ROSE CHASE DATE OF EXAM: 07/31/18 RE PORT #:[id number] GARETH SHEPHERD DO TRN: TBY This is a Signed report E ND OF REPORT La b Results These Lab results have been reviewed and interpreted by me.Laborator y Tests 07/31 07/31 Range/Units 1226 1225 Blood Gas VBG Lactate 0.99 0.00 - 2.00 mmol/L Chemistry Sodium 139 135 - 145 mmol/L Potassium 3.9 3.5 - 5.1 mmol/L Chloride 104 98 - 107 mmol/L Carbon Dioxide 28 23 - 33 mm ol/L Anion Gap 7.0 L 8 - 20 mmol/L BUN 9 7 - 18 mg/dL Creatinine 0.862 0.700 - 1.300 mg/dL Est Cr Clr Drug Dosing 92.96 >=60.00 mL/min Est GFR (MDRD) Af Amer 122.38 >=60.0 m L/min Est GFR (MDRD) Non-Af 101.14 >=60.0 mL/min BUN/ Creatinine Ratio 10.4 6.0 - 20.0 Glucose 105 74 - 106 mg/dL Calculated Osmolality 277 273 - 304 mos/kg Calcium 8.8 8.5 - 10.1 mg/dL Total Bilirubin 1.2 0.2 - 1.2 mg/dL AST 32 15 - 37 U/L ALT 81 H 16 - 61 U/L Alkaline Phosphatase 71 45 - 117 U/L Total Protein 7.5 6.4 - 8.3 g/dL Albumin 4.0 3.4 - 5.0 g/dL Globulin 3.5 2.6 - 3.8 g/dL Albumin/Globulin Ratio 1.1 1.0 - 5.0 Coagulation PT 15.3 H 10.2 - 13.2 sec INR 1.32 APTT 27 .8 26.2 - 38.2 sec Hematology WBC 6.29 4.00 - 10.00 K/uL RBC 4.05 L 4.6 3 - 6.08 M/uL Hgb 12.2 L 13.7 - 17.5 g/dL Hct 35.2 L 40.1 - 51.0 % MCV 86.9 80.0 - 96.0 fL MCH 30.1 27.0 - 33.2 pg MCHC 34.7 32.2 - 35.5 g/dL RDW 12.3 11. 6 - 14.4 % Plt Count 127 L 150 - 450 K/uL MPV 10.2 8.5 - 11.8 fL Immature Gran % (Auto) 0.2 0.1 - 0.3 % Immature Gran # (Auto) 0.01 0.01 - 0.03 K/uL Neutrophils % 73.4 H 38.9 - 69.8 % Lymphocytes % 17.0 L 21.7 - 51.7 % Monocytes % 6.4 4.7 - 12.2 % Eosinophils % 2.5 0.8 - 7.0 % Basophils % 0.5 0.1 - 1.2 % Neutrophils # 4.62 1.46 - 7.12 K/uL Lymphocytes # 1.07 0.92 - 4.30 K/uL Monocytes # 0.40 0.24 - 0.8 6 K/uL Eosinophils # 0.16 0.04 - 0.54 K/uL Basophils # 0.03 0.01 - 0.08 K/uL Nucleated RB Cs 0.0 0.0 - 0.2 /100WBC Immature Plt Fraction 2.8 1.1 - 6.1 % Portions of this section were scribed by CIARRA PARK on 07/31/18 at 1442 Medical Decision/Progress/CC Progress/Reassessme ntTime [id number]: locker room clerk is attempting to contact [facility], transf er is pending at this time. 1446: locker room clerk is attempting to contact [facility] for the second time, transferis pending at this time. 1458: Dr. Quiroz accepts the pt for transfer to [facility]. Progress/ReassessmentTime 1425Pt status no distressCommentsSleeping, comfortable, in NAD. Progress/ReassessmentTime 1458Comme ntsBased upon the information available at the time of transfer, the medical benefi tsreasonably expected from the provision of medical treatment at [facility] outweigh the increased risk to the patient for transfer from this facility because [facility] does not admit incarcerated patients. I have described the inherent risks and benefit s of the transfer to the patient, and patient agrees to transfer. I have spoken to Dr. Quiroz who has agreed to accept transfer of the patient and provide further medic al treatment at the receiving facility. At the time of transfer, [facility] which related to the emergency condition for which the kyrieivi dual presented. These records include observations of signs or symptoms, preli minary clinical impression, treatment provided, resultsof any completed test a nd an informed written consent to the transfer. Progress/ReassessmentTime [address] Carballo from [facility] accepts the pt to the ED. Portions of this section were scribed by CIARRA PARK on 07/31/18 at 1525 Disposition ED DispositionDecision made to Hospitalize YesHosp or Disch Decision Dt 07/31/18Hosp or Disch Decision Tm 145 9Discussion with attending case discussed fully, aware-ED workup/findings, agree w /management/plan, accept transfer of care, Dr. Quiroz at [facility] accepts the p t for transfer. Dr. K accepts to ER.Disposition [facility]OTHER )Clinical ImpressionPrimary Impression: Cellulitis of buttock, leftCondition Joseph Donnell DOCTOR (PCP) Portions of this section were scribed by CIARRA PARK on 07/31/18 at 1229 at 1648 SAVAGE CIFUENTES Electronically Signed 07/31/18 1648 Providers:ANEUDY SHANKS DO, SCOTTReport Entered Date/Time: 07/31/18 1229Current Report S tatus: Signed Report #: [id number] PCP ID: [id number] ATTENDING ID: [id number] AUTHOR ID: REJI Name Value Range Interpretation Code Description Data Jenni rce(s) Supporting Document(s ) ID Date Data Source [id number] 07/31/2018 04:23:[address] [facility] Name Value Range Interpretation Description Data Sup porting Code Source(s) Document(s ) LACTATE 1.22 0.00-2.00 [facility] SEPSIS mmol/L [facility] ID Date Data Source [id number] 07/31/2018 03:09:[address] [facility] Name Value Range Interpretation Description Data Sup porting Code Source(s) Document(s ) LACTATE 1.21 0.00-2.00 [facility] SEPSIS mmol/L [facility] ID Date Data Source [id number] 07/31/2018 12:51:[address] [facility] DEPARTMENT OF DIAGNOSTIC IMAGING Pat ient Name: ROSE CHASE : 1985 Patient Addr.: [facility], [address] [place] [address] MR#: [id number] [place] [address] Patient Phone #: Dictate Date: 07/31/18 1402 Ordering aJmeel: SAVAGE SIMPSON ID: REJI Trans Date: Copies to: SAVAGE SIMPSON; CC ID: ; Patient Loc: L.ER Report #: [id number] Order Number(s): [id number] Site: [facility] Exam Date/Time: 07/31/18 1250 Exam: CHEST 1 VIEW AP PORTABLE ROUT PROCEDURE: CHEST 1 VIEW, AP PORTABLE ROUTINE COMPARISON: None. INDICATIONS: Sepsis VIEWS: Single-view chest FINDINGS: L UNGS: Normal. No significant pulmonary parenchymal abnormalities. VASCULATU RE: Normal. Unremarkable pulmonary vasculature. CARDIAC: Normal. No cardiac silhouette abnormality or cardiomegaly. MEDIASTINUM: Normal. No visible mass or adenopathy. PLEURA: Normal. No effusion or pleural thicken ing. OTHER: Negative. CONCLUSION: 1. No active pulmonary disease. Dictated by: Gareth Shepherd DO on 07/31/2018 at 2:02 PM Approved by: Gaerth Shepherd DO on 07/31/2018 at 2:02 PM Signed: 07/31/18 1402 GARETH SHEPHERD DO TRN: TBY Name Value Range Interpretation Code Description Data Jenni rce(s) Supporting Document(s ) ID Date Data Source [id number] 07/31/2018 02:03:[address] [facility] Name Value Range Interpretation Description Data Sup porting Code Source(s) Document(s ) COLOR IQ Skyla YELLOW [facility] CLARITY IQ Clear CLEAR [facility] SPECIFIC 1.026 1.001-1.03 [facility] GRAVITY IQ 5 [facility] pH IQ 5 4.6-8.0 [facility] LEUKOCYTES IQ Negative NEGATIVE [facility] Justin/uL [facility] NITRITE IQ Negative Negative [facility] PROTEIN IQ 30 mg/dL Negative [facility] GLUCOSE IQ Negative Negative [facility] mg/dL [facility] KETONES IQ Negative Negative [facility] mg/dL [facility] UROBILINOGEN 2 E.U./dL Negative [facility] IQ [facility] BILIRUBIN IQ Negative NEGATIVE [facility] mg/dL [facility] BLOOD IQ Negative NEGATIVE [facility] WBC IQ 0-5 /HPF 0-5 [facility] RBC IQ 0-3 /HPF 0-3 [facility] BACTERIA IQ NEGATIVE NEGATIVE [facility] /HPF [facility] CALCIUM 0-2 /HPF NONE SEEN [facility] ID Date Data Source [id number] 07/31/2018 02:03:[address] [facility] Name Value Range Interpretation Description Data Sup porting Code Source(s) Document(s ) WBC IQ 0-5 /HPF 0-5 [facility] RBC IQ 0-3 /HPF 0-3 [facility] BACTERIA IQ NEGATIVE NEGATIVE [facility] /HPF [facility] CALCIUM 0-2 /HPF NONE SEEN [facility] ID Date Data Source [id number] 08/05/2018 11:50:[address] [facility] Cmt:IF CENTRAL LINE DRAW 1CENTRALLY 1 PE RIPEHRALNo growth.NO GROWTH 5 DAYSNo growth.NO GROWTH 5 DAYS Name Value Range Interpretation Code Description Data Jenni rce(s) Supporting Document(s ) ID Date Data Source [id number] 07/31/2018 01:38:[address] [facility] Name Value Range Interpretation Description Data Sup porting Code Source(s) Document(s ) BLOOD TYPE B POSITIVE [facility] ID Date Data Source [id number] 07/31/2018 12:40:[address] [facility] Name Value Range Interpretation Description Data Sup porting Code Source(s) Document(s ) LACTATE 0.99 0.00-2.00 [facility] SEPSIS mmol/L [facility] ID Date Data Source [id number] 08/05/2018 11:50:[address] [facility] Cmt:IF CENTRAL LINE DRAW 1CENTRALLY 1 PE RIPEHRALNo growth.NO GROWTH 5 DAYSNo growth.NO GROWTH 5 DAYS Name Value Range Interpretation Code Description Data Jenni rce(s) Supporting Document(s ) ID Date Data Source [id number] 07/31/2018 01:17:[address] [facility] Name Value Range Interpretation Description Data Sup porting Code Source(s) Document(s ) BLOOD TYPE B POSITIVE [facility] ANTIBODY NEGATIVE [facility] SCREEN (IND [place] CONSUELO) [facility] ID Date Data Source [id number] 07/31/2018 12:55:[address] [facility] Name Value Range Interpretation Code Description Data Jenni rce(s) Supporting Document(s ) GLUCOSE 105 mg/dL 74-106 [facility] BUN 9 mg/dL 7-18 [facility] 0.862 EST.GLOMERULAR FILTRATION RATE 101.14 mL/min >=60.0 [facility] EST.GFR 122.38 mL/min >=60.0 [facility] PH[facility]ACY COCKCROFT-GAULT CRCLR 92.96 mL/min >=60.00 [facility] 0.862 BUN/CREAT RATIO 10.4 6.0-20.0 [facility] SODIUM 139 mmol/L 135-145 [facility] POTASSIUM 3.9 mmol/L 3.5-5.1 [facility] CHLORIDE 104 mmol/L 98-107 [facility] CO2 28 mmol/L 23-33 [facility] ANION GAP 7.0 mmol/L 8-20 Below low normal [facility] AST 32 U/L 15-37 [facility] ALK PHOS 71 U/L 45-117 [facility] TOTAL BILIRUBIN 1.2 mg/dL 0.2-1.2 [facility] TOTAL PROTEIN 7.5 g/dL 6.4-8.3 [facility] ALBUMIN 4.0 g/dL 3.4-5.0 [facility] GLOBULIN 3.5 g/dL 2.6-3.8 [facility] A/G RATIO CALCULATION 1.1 1.0-5.0 [facility] CALCIUM 8.8 mg/dL 8.5-10.1 [facility] ALTI 81 U/L 16-61 Above high normal [facility] OSMOLALITY CALCULATION 277 mos/kg 273-304 [facility] ID Date Data Source [id number] 07/31/2018 12:49:[address] [facility] Name Value Range Interpretation Code Description Data Jenni rce(s) Supporting Document(s ) PT 15.3 sec 10.2-13.2 Above high normal [facility] INR 1.32 [facility] INR IS DESIGNED TO MONITOR THOSE PATIENT S STABILIZED ONORAL ANTICOAGULANT THERAPY. IT IS NOT SUITED FOR PRE-OPSCREENING OR FOR EVALUATING CONDITIONS SUCH LIVERDISEASE.THERAPEUTIC RANGE:PATIENTS ON ORAL ANTICOAGULANTS 2.00 - 3.00PATIENTS WITH PROSTHETIC HEART VALVES 2.50 - 3.5 0 ID Date Data Source [id number] 07/31/2018 12:49:[address] [facility] Name Value Range Interpretation Code Description Data Jenni rce(s) Supporting Document(s ) APTT 27.8 sec 26.2-38.2 [facility] Please note the NEW REFERENCE RANGE ID Date Data Source [id number] 07/31/2018 12:43:[address] [facility] Name Value Range Interpretation Code Description Data Jenni rce(s) Supporting Document(s ) WBC 6.29 K/uL 4.00-10.00 [facility] RBC 4.05 M/uL 4.63-6.08 Below low normal [facility] HGB 12.2 g/dL 13.7-17.5 Below low normal [facility] HCT 35.2 % 40.1-51.0 Below low normal [facility] MCV 86.9 fL 80.0-96.0 [facility] MCH 30.1 pg 27.0-33.2 [facility] MCHC 34.7 g/dL 32.2-35.5 [facility] RDW 12.3 % 11.6-14.4 [facility] PLT 127 K/uL 150-450 Below low normal [facility] IPF 2.8 % 1.1-6.1 [facility] Immature platelet fraction is the ratio of immatureplatelets to the total number of platelets in the patient'speripheral blo od. These immature cells, newly released fromthe bone marrow, may contain increas ed amounts ofcytoplasmic RNA. This count is a measure of thrombopoieticactivity of t he bone marrow. MPV 10.2 fL 8.5-11.8 [facility] STEVEN% 73.4 % 38.9-69.8 Above high normal [facility] LYM% 17.0 % 21.7-51.[address] [facility] MONO% 6.4 % 4.7-12.2 [facility] EOS% 2.5 % 0.8-7.0 [facility] BASO% 0.5 % 0.1-1.2 [facility] IMMATURE GRANULOCYTE% 0.2 % 0.1-0.3 [facility] The immature granulocyte count is an enu meration ofmetamyelocytes, myelocyte, and promyelocytes present [facility] blood sa mple. It does not include band neutrophilforms. STEVEN# 4.62 K/uL 1.46-7.12 [facility] LYM# 1.07 K/uL 0.92-4.30 [facility] MONO# 0.40 K/uL 0.24-0.86 [facility] EOSIN# 0.16 K/uL 0.04-0.54 [facility] BASO# 0.03 K/uL 0.01-0.08 [facility] IMMATURE GRANULOCYTES# 0.01 K/uL 0.01-0.03 [facility] NRBC 0.0 /100WBC 0.0-0.2 [facility] Procedure Social History Code Duration Value Status Description Data Source(s ) Smoking 11/01/2015 Unknown if ever completed Unknown if ever [facility] 01:15:37 PM EDT smoked smoked ([facility] - 11/01/2015 Family 01:15:37 PM EDT [facility]) Smoking Unknown if ever completed Unknown if ever [facility] smoked smoked [facility] Vital Signs ID Date Data Source UNK Name Value Range Interpretation Code Description Data Source(s) Body temperature 99.6 [degF] 0 - 200 Normal (applies to 99.6 [degF ] [facility] non-numeric results) [facility] Body temperature 37.5 Leydi 0 - 99.9 Normal (applies to 37.5 Leydi [facility] non-numeric results) [facility] Diastolic blood 71 mm[Hg] 0 - 999 Normal (applies to 71 mm[Hg] [facility] pressure non-numeric results) [facility] Systolic blood 130 mm[Hg] 0 - 999 Normal (applies to 130 mm[Hg] [facility] pressure non-numeric results) [facility] Deprecated Oxygen 98 % 0 - 999 Normal (applies to 98 % [facility] saturation in non-numeric results) [facility] Capillary blood by Oximetry Respiratory rate 18 0 - 999 Above high normal 18 [facility] Heart rate 83 0 - 999 Normal (applies to 83 [facility] non-numeric results) [facility] Body surface area 1.5 m2 1.5 m2 [facility] Derived from [facility] formula Body mass index 21.2 kg/m2 21.2 kg/m2 [facility] (BMI) [Ratio] [facility] Body weight 54.43 kg 54.43 kg [facility] Body height 160.02 cm 160.02 cm [facility] Patient Treatment Plan of Care Planned Activity Planned Date Details Description Data Source (s) Sulfamethoxazole 800 MG / 08/01/2018 [facility] Trimethoprim 160 MG Oral 01:24:54 PM EDT System Tablet Docusate Sodium 50 MG / 08/01/2018 [facility] sennosides, PEN[facility]ENT[facility]ARY 8.6 MG Oral 01:24:48 PM EDT System Tablet Mupirocin 0.02 MG/MG 08/01/2018 [facility] Topical Ointment 01:24:46 PM EDT System Methadone [facility] System gabapentin 800 MG Oral [facility] Tablet System Methadone Hydrochloride [address] [facility] MG Oral Tablet [facility] gabapentin [address] [facility] Tablet [facility]
[2019-11-26] MEDS: chlordiazePOXIDE HCL 25 MG CAPSULE PO SCH (22:41)
[2019-11-26] MEDS: THIAMINE HCL 100 MG TABLET (FP) PO SCH (22:41)
[2019-11-26] MEDS: MELATONIN 5 MG TABLETS PO SCH (22:41)
[2019-11-27] MEDS: chlordiazePOXIDE HCL 25 MG CAPSULE PO SCH ×4 (05:19→23:01)
[2019-11-27] MEDS ORDERED: METHADONE HCL 40 MG DISPERSABLE TABLET PO SCH (11:00)
[2019-11-27] MEDS ORDERED: METHADONE HCL 10 MG TABLET ONE (11:10)
[2019-11-27] MEDS ORDERED: METHADONE HCL 40 MG DISPERSABLE TABLET ONE (11:10)
[2019-11-27] MEDS: METHADONE 80 MG, METHADONE 30 MG PO SCH (11:11)
[2019-11-27] MEDS: NICOTINE 21 MG/24 HOURS TOPICAL PATCH TD SCH (11:12)
[2019-11-27] MEDS: PRENATAL VITAMINS W/ FOLIC ACID TABLET (FP) PO SCH (11:12)
[2019-11-27] MEDS: NICOTINE POLACRILEX 2 MG GUM BUC PRN ×3 (11:12→23:03)
--- NOTE | 2019-11-27 11:27 | PN ---
S CIWA - CIWA Score Nausea/Vomitin-No Nausea/No Vomiting Muscle Tremors: 2 Anxiety: 3 Agitation: 0-Normal Activity Paroxysmal Sweats: 3 Orientation: 0-Oriented Tacttile Disturbances: 0-None Auditory Disturbances: 0-None Visual Disturbances: 0-None Headache: 2-Mild CIWA-Ar Total Score: 10 [facility] Progress Note (SOAP) Subjective: c/o anxiety, sweats, headache, and shakes. Objective: 11/27/19 11:27 Vital Signs 11/27/19 11/27/19 06:21 09:13 Temperature 97.1 F L 97.1 F L Pulse Rate 61 76 Respiratory 18 18 Rate Blood Pressure 98/62 127/74 O2 Sat by Pulse 96 Oximetry (%) Labs noted. Assessment: 11/27/19 11:27 AOX3, in no acute respiratory distress. Full ROM, ambulating in the unit. Withdrawal symptoms. Plan: continue detox.
[2019-11-27 11:49] LABS: HEMATOCRIT 32.3 % (35.4-49); HEMOGLOBIN 11.1 GM/dL (11.7-16.9); MCHC 34.5 g/dl (32.0-35.9); MEAN CELL VOLUME 92.9 fl (80-96); MEAN PLT VOLUME 8.1 fl (7.5-11.1); PLATELET COUNT 192 K/MM3 (134-434); RBC 3.47 M/mm3 (4.00-5.60); RDW 13.5 % (11.9-15.9)
[2019-11-27 12:01] LABS: BILIRUBIN,TOTAL 0.4 mg/dL (0.2-1); BLOOD UREA NITROGEN 10.2 mg/dL (7-18); CALCIUM 8.4 mg/dL (8.5-10.1); CREATININE 0.7 mg/dL (0.55-1.3); POTASSIUM 4.1 mmol/L (3.5-5.1); TOT PROT 5.9 g/dl (6.4-8.2)
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
--- NOTE | 2019-11-27 16:14 | EKG ---
Test Reason : Blood Pressure : / mmHG Vent. Rate : 070 BPM Atrial Rate : 070 BPM P-R Int : 138 ms QRS Dur : 076 ms QT Int : 444 ms P-R-T Axes : 056 064 030 degrees QTc Int : 479 ms NORMAL SINUS RHYTHM NONSPECIFIC T WAVE ABNORMALITY PROLONGED QT ABNORMAL ECG WHEN COMPARED WITH ECG OF 04-JUL-2016 14:22, NO SIGNIFICANT CHANGE WAS FOUND Confirmed by MD Iftikhar, Koko ([id number]) on 11/27/2019 4:14:19 PM Referred By: Confirmed By:Koko Buitrago MD
[2019-11-27] MEDS: ACETAMINOPHEN 325 MG TABLET (FP) PO PRN (17:50)
[2019-11-27] MEDS: THIAMINE HCL 100 MG TABLET (FP) PO SCH (23:02)
[2019-11-27] MEDS: BACITRACIN 0.9 GM PACKET TP SCH (23:03)
[2019-11-27] MEDS: MELATONIN 5 MG TABLETS PO SCH (23:03)
[2019-11-28] MEDS ORDERED: METHADONE HCL 10 MG TABLET ONE (04:59)
[2019-11-28] MEDS ORDERED: METHADONE HCL 40 MG DISPERSABLE TABLET ONE (04:59)
[2019-11-28] MEDS: chlordiazePOXIDE HCL 25 MG CAPSULE PO SCH ×4 (05:56→22:30)
[2019-11-28] MEDS: METHADONE 80 MG, METHADONE 30 MG PO SCH (05:56)
[2019-11-28] MEDS: PRENATAL VITAMINS W/ FOLIC ACID TABLET (FP) PO SCH (10:43)
[2019-11-28] MEDS: NICOTINE 21 MG/24 HOURS TOPICAL PATCH TD SCH (10:44)
[2019-11-28] MEDS: BACITRACIN 0.9 GM PACKET TP SCH ×2 (10:55→22:29)
[2019-11-28] MEDS ORDERED: GABAPENTIN 300 MG CAPSULE PO ONE (11:03)
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
[2019-11-28] MEDS ORDERED: BACITRACIN 0.9 GM PACKET TP ONE (11:33)
[2019-11-28] MEDS: NICOTINE POLACRILEX 2 MG GUM BUC PRN (17:23)
[2019-11-28] MEDS: MELATONIN 5 MG TABLETS PO SCH (22:30)
[2019-11-28] MEDS: THIAMINE HCL 100 MG TABLET (FP) PO SCH (22:30)
[2019-11-28] MEDS: ACETAMINOPHEN 325 MG TABLET (FP) PO PRN (22:31)
[2019-11-29] MEDS ORDERED: chlordiazePOXIDE HCL 10 MG CAPSULE PO PRN
[2019-11-29] MEDS ORDERED: METHADONE HCL 10 MG TABLET ONE (04:35)
[2019-11-29] MEDS ORDERED: METHADONE HCL 40 MG DISPERSABLE TABLET ONE (04:35)
[2019-11-29] MEDS: METHADONE 80 MG, METHADONE 30 MG PO SCH (05:23)
[2019-11-29] MEDS: chlordiazePOXIDE HCL 10 MG CAPSULE PO SCH ×4 (05:23→22:18)
[2019-11-29] MEDS: ACETAMINOPHEN 325 MG TABLET (FP) PO PRN (09:04)
[2019-11-29] MEDS: METHOCARBAMOL 500 MG TABLET PO PRN (09:04)
[2019-11-29] MEDS: PRENATAL VITAMINS W/ FOLIC ACID TABLET (FP) PO SCH (10:19)
[2019-11-29] MEDS: NICOTINE 21 MG/24 HOURS TOPICAL PATCH TD SCH (10:19)
[2019-11-29] MEDS: BACITRACIN 0.9 GM PACKET TP SCH ×2 (10:19→21:39)
--- NOTE | 2019-11-29 11:22 | PN ---
S CIWA - CIWA Score Nausea/Vomitin-Mild Nausea/No Vomiting Muscle Tremors: 1-None Visible, but [place] Anxiety: 1-Mildly Anxious Agitation: 1-Slight > Activity Paroxysmal Sweats: 1-Minimal Palms Moist Orientation: 0-Oriented Tacttile Disturbances: 0-None Auditory Disturbances: 0-None Visual Disturbances: 0-None Headache: 1-Very Mild CIWA-Ar Total Score: 6 BHS Progress Note (SOAP) Subjective: 33 years old male was admitted on 11/26/19 for alcohol withdrawal sx management treating with librium detox regiment mr pizano received on dose of neurontin 300mg yesterday and disappointed about not able to received three times a day mr pizano states that neurontin for his anxiety and pain according to psychiatrist note that indefinite hold may negotiate with mr pizano encourage mr pizano to discuss neurontin with psychiatrist mr pizano walks away "you do not care" psychiatric referral mr pizano states that he has pain on left foot bunion from "I am walking around for 3 weeks" encourage mr pizano visit manager print for proper treatment Objective: 11/29/19 11:32 Vital Signs - 24 hr 11/28/19 11/28/19 11/28/19 12:41 16:56 20:53 Temperature 98.9 F 96.6 F L 97.7 F Pulse Rate 73 79 100 H Respiratory 18 18 18 Rate Blood Pressure 117/60 109/62 117/65 O2 Sat by Pulse 100 99 Oximetry (%) 11/29/19 11/29/19 06:14 09:01 Temperature 98.2 F 97.3 F L Pulse Rate 57 L 79 Respiratory 16 20 Rate Blood Pressure 106/61 116/70 O2 Sat by Pulse 96 96 Oximetry (%) Laboratory Tests 11/27/19 11/27/19 11/27/19 07:50 07:50 07:50 WBC 4.0 RBC 3.47 L Hgb 11.1 L Hct 32.3 L D MCV 92.9 MCH 32.0 MCHC 34.5 RDW 13.5 Plt Count 192 D MPV 8.1 Sodium 140 Potassium 4.1 Chloride 106 Carbon Dioxide 30 Anion Gap 4 L BUN 10.2 Creatinine 0.7 Est GFR (CKD-EPI)AfAm 141.70 Est GFR (CKD-EPI)NonAf 122.26 Random Glucose 95 Calcium 8.4 L Total Bilirubin 0.4 AST 20 ALT 20 Alkaline Phosphatase 46 Total Protein 5.9 L Albumin 3.0 L Syphilis Serology Non-reactive COVID-19 (RADHA) 11/27/19 08:20 WBC RBC Hgb Hct MCV MCH MCHC RDW Plt Count MPV Sodium Potassium Chloride Carbon Dioxide Anion Gap BUN Creatinine Est GFR (CKD-EPI)AfAm Est GFR (CKD-EPI)NonAf Random Glucose Calcium Total Bilirubin AST ALT Alkaline Phosphatase Total Protein Albumin Syphilis Serology COVID-19 (RADHA) Not detected lab noted Assessment: 11/29/19 11:33 alcohol withdrawal Plan: librium regiment
--- NOTE | 2019-11-29 15:25 | PN ---
Psychiatric Progress Note Vital Signs: Vital Signs Period Temp Pulse Resp BP Sys/Roche Pulse Ox Last 24 Hr 96.6 F-98.2 F 57-100 16-20 106-117/61-70 96-100 Date of Session: 11/29/19 Chief Complaint:: " I want to get back on my gabapentin." HPI: Unremarkable hospital course except for patient's constant requests for addition of gabapentin to the regimen. This is the reason for this psychiatric follow-up requested by the medical provider. ROS: No somatic complaint offered. Patient is visible on the unit. Ambulatory. Steady gait. Alert and fully oriented. Current Medications: Active Medications Generic Name Dose Route Start Last Admin Trade Name Freq PRN Reason Stop Dose Admin Acetaminophen 650 mg 11/26/19 18:18 11/29/19 09:04 Tylenol - PO 650 mg Q6H PRN Administration PAIN LEVEL 4 - 6 Acetaminophen 650 mg 11/26/19 18:18 Tylenol - PO Q6H PRN FEVER Al Hydroxide/Mg Hydroxide 30 ml 11/26/19 18:18 Mylanta Oral Suspension - PO Q6H PRN DYSPEPSIA Bacitracin 0.9 gm 11/28/19 11:02 11/29/19 10:19 Bacitracin - TP 0.9 gm BID EULALIA Administration Bismuth Subsalicylate 524 mg 11/26/19 18:18 Pepto-Bismol - PO Q1H PRN DIARRHEA Chlordiazepoxide HCl 10 mg 11/29/19 05:00 11/29/19 10:20 Librium - PO 11/29/19 23:01 10 mg [id number] EULALIA Administration Chlordiazepoxide HCl 10 mg 11/30/19 05:00 Librium - PO 11/30/19 17:01 Q12H EULALIA Chlordiazepoxide HCl 10 mg 11/29/19 00:00 Librium - PO 11/30/19 00:00 Q4H PRN WITHDRAWAL(CONT SUBST) Chlordiazepoxide HCl 10 mg 12/01/19 05:00 Librium - PO 12/01/19 05:01 ONCE@0500 ONE Eucalyptus/Menthol/Phenol/Sorbitol 1 each 11/26/19 18:18 Cepastat Lozenge - MM 12/02/19 18:19 Q4H PRN SORE THROAT Ibuprofen 400 mg 11/26/19 18:18 Motrin - PO Q6H PRN PAIN LEVEL 1 - 3 Magnesium Citrate 300 ml 11/26/19 18:18 Citroma - PO Q48H PRN CONSTIPATION Magnesium Hydroxide 30 ml 11/26/19 18:18 Milk Of Magnesia - PO PRN PRN CONSTIPATION Melatonin 5 mg 11/26/19 22:00 11/28/19 22:30 Melatonin PO 5 mg HS EULALIA Administration Methadone HCl 80 mg/ Methadone 110 mg 11/27/19 11:15 11/29/19 05:23 HCl 30 mg PO 110 mg DAILY@0600 EULALIA Administration Methocarbamol 500 mg 11/26/19 18:18 11/29/19 09:04 Robaxin - PO 12/02/19 18:19 500 mg Q6H PRN Administration MUSCLE SPASMS Nicotine 21 mg 11/27/19 10:00 11/29/19 10:19 Nicoderm Patch - TD 21 mg DAILY EULALIA Administration Nicotine Polacrilex 2 mg 11/26/19 18:18 11/28/19 17:23 Nicorette Gum - BUC 2 mg Q2H PRN Administration NICOTINE REPLACEMENT RX Ondansetron HCl 4 mg 11/26/19 18:18 Zofran Odt - SL Q8H PRN Nausea/Vomiting Multivit/Folic Acid/Iron 1 tab 11/27/19 10:00 11/29/19 10:19 Vitamins (Sjr) - PO 1 tab DAILY EULALIA Administration Thiamine HCl 100 mg 11/26/19 22:00 11/28/19 22:30 Vitamin B1 - PO 100 mg HS EULALIA Administration Medication(s) Change(s): Gabapentin is resumed at the dose of 200 mg po tid. With the patient's informed consent. Barrel Ribs Solderer has, again, attempted to contact [facility] pharmacy today. Unsuccessful attempt (call placed on hold). Current Side Effect: No Lab tests ordered: No Lab tests reviewed: Yes Provider note:: Met with the patient. No acute symptomatology with the exception of repeated requests for gabapentin. Mr Gusman is seen moving around on the unit, watching TV, socializing with peers and functioning at his baseline. Manipulative behavior. Stable mental status. Total face to face time:: 25 Mental Status Exam - Mental Status Exam Alert and Oriented to: Time, Place, Person Cognitive Function: Good Patient Appearance: Well Groomed Mood: Anxious, Apprehensive Affect: Mood Congruent, Labile Patient Behavior: Inappropriate (medication-seeking), Cooperative Speech Pattern: Clear Voice Loudness: Normal Thought Process: Goal Oriented Thought Disorder: Not Present Hallucinations: Denies Suicidal Ideation: Denies Homicidal Ideation: Denies Insight/Judgement: Poor Sleep: Well Appetite: Good Gait/Station: Normal Psychiatric Treatment Plan - Problem List (1) Alcohol dependence with uncomplicated withdrawal Current Visit: Yes Comment: . (2) Opioid dependence on agonist therapy Current Visit: Yes Comment: . (3) Cocaine dependence Current Visit: Yes Qualifiers: Substance use status: uncomplicated Qualified Code(s): F14.20 - Cocaine dependence, uncomplicated Comment: . (4) Nicotine dependence Current Visit: Yes Qualifiers: Nicotine product type: cigarettes Substance use status: uncomplicated Qualified Code(s): F17.210 - Nicotine dependence, cigarettes, uncomplicated Comment: . (5) Substance induced mood disorder Current Visit: Yes Comment: .
[2019-11-29] MEDS: NICOTINE POLACRILEX 2 MG GUM BUC PRN ×2 (18:13→22:18)
[2019-11-29] MEDS: GABAPENTIN 100 MG CAPSULE PO SCH (21:39)
[2019-11-29] MEDS: THIAMINE HCL 100 MG TABLET (FP) PO SCH (21:39)
[2019-11-29] MEDS: MELATONIN 5 MG TABLETS PO SCH (21:39)
[2019-11-30] MEDS ORDERED: METHADONE HCL 10 MG TABLET ONE (03:14)
[2019-11-30] MEDS ORDERED: METHADONE HCL 40 MG DISPERSABLE TABLET ONE (03:15)
[2019-11-30] MEDS: GABAPENTIN 100 MG CAPSULE PO SCH ×3 (05:46→22:16)
[2019-11-30] MEDS: METHADONE 80 MG, METHADONE 30 MG PO SCH (05:47)
[2019-11-30] MEDS: chlordiazePOXIDE HCL 10 MG CAPSULE PO SCH ×2 (05:47→17:56)
[2019-11-30] MEDS: NICOTINE POLACRILEX 2 MG GUM BUC PRN ×4 (05:50→22:18)
[2019-11-30] MEDS: NICOTINE 21 MG/24 HOURS TOPICAL PATCH TD SCH (10:23)
[2019-11-30] MEDS: BACITRACIN 0.9 GM PACKET TP SCH ×2 (10:23→22:16)
[2019-11-30] MEDS: PRENATAL VITAMINS W/ FOLIC ACID TABLET (FP) PO SCH (10:24)
[2019-11-30] MEDS: METHOCARBAMOL 500 MG TABLET PO PRN ×2 (10:26→22:18)
--- NOTE | 2019-11-30 10:47 | PN ---
S CIWA - CIWA Score Nausea/Vomitin-No Nausea/No Vomiting Muscle Tremors: 2 Anxiety: 2 Agitation: 2 Paroxysmal Sweats: No Perspiration Orientation: 0-Oriented Tacttile Disturbances: 0-None Auditory Disturbances: 0-None Visual Disturbances: 0-None Headache: 1-Very Mild CIWA-Ar Total Score: 7 S Progress Note (SOAP) Subjective: alert,irritable,anxious,interrupted sleep,aching pain Objective: 11/30/19 16:06 Vital Signs Temperature 97.5 F L 11/30/19 12:32 Pulse Rate 73 11/30/19 12:32 Respiratory Rate 16 11/30/19 12:32 Blood Pressure 96/59 L 11/30/19 12:32 O2 Sat by Pulse Oximetry (%) 99 11/30/19 12:32 Laboratory Last Values WBC 4.0 K/mm3 (4.0-10.0) 11/27/19 07:50 RBC 3.47 M/mm3 (4.00-5.60) L 11/27/19 07:50 Hgb 11.1 GM/dL (11.7-16.9) L 11/27/19 07:50 Hct 32.3 % (35.4-49) L D 11/27/19 07:50 MCV 92.9 fl (80-96) 11/27/19 07:50 MCH 32.0 pg (25.7-33.7) 11/27/19 07:50 MCHC 34.5 g/dl (32.0-35.9) 11/27/19 07:50 RDW 13.5 % (11.9-15.9) 11/27/19 07:50 Plt Count 192 K/MM3 (134-434) D 11/27/19 07:50 MPV 8.1 fl (7.5-11.1) 11/27/19 07:50 Sodium 140 mmol/L (136-145) 11/27/19 07:50 Potassium 4.1 mmol/L (3.5-5.1) 11/27/19 07:50 Chloride 106 mmol/L (98-107) 11/27/19 07:50 Carbon Dioxide 30 mmol/L (21-32) 11/27/19 07:50 Anion Gap 4 MMOL/L (8-16) L 11/27/19 07:50 BUN 10.2 mg/dL (7-18) 11/27/19 07:50 Creatinine 0.7 mg/dL (0.55-1.3) 11/27/19 07:50 Est GFR (CKD-EPI)AfAm 141.70 11/27/19 07:50 Est GFR (CKD-EPI)NonAf 122.26 11/27/19 07:50 Random Glucose 95 mg/dL (74-106) 11/27/19 07:50 Calcium 8.4 mg/dL (8.5-10.1) L 11/27/19 07:50 Total Bilirubin 0.4 mg/dL (0.2-1) 11/27/19 07:50 AST 20 U/L (15-37) 11/27/19 07:50 ALT 20 U/L (13-61) 11/27/19 07:50 Alkaline Phosphatase 46 U/L (45-117) 11/27/19 07:50 Total Protein 5.9 g/dl (6.4-8.2) L 11/27/19 07:50 Albumin 3.0 g/dl (3.4-5.0) L 11/27/19 07:50 Syphilis Serology Non-reactive (NONREACTIVE) 11/27/19 07:50 COVID-19 (RADHA) Not detected (Not Detected) 11/27/19 08:20 Assessment: 11/30/19 16:07 withdrawal symptom Plan: continue detox librium regimen,continue methadone maintenance 110 mg/day maintenance
[2019-11-30] MEDS: THIAMINE HCL 100 MG TABLET (FP) PO SCH (22:16)
[2019-11-30] MEDS: MELATONIN 5 MG TABLETS PO SCH (22:16)
[2019-12-01] MEDS ORDERED: METHADONE HCL 40 MG DISPERSABLE TABLET ONE (04:48)
[2019-12-01] MEDS ORDERED: METHADONE HCL 10 MG TABLET ONE (04:48)
[2019-12-01] MEDS ORDERED: chlordiazePOXIDE HCL 10 MG CAPSULE PO ONE (05:00)
[2019-12-01] MEDS: GABAPENTIN 100 MG CAPSULE PO SCH ×2 (05:14→13:16)
[2019-12-01] MEDS: METHADONE 80 MG, METHADONE 30 MG PO SCH (05:15)
[2019-12-01] MEDS: ACETAMINOPHEN 325 MG TABLET (FP) PO PRN ×2 (05:16→10:34)
--- NOTE | 2019-12-01 08:48 | PN ---
[facility] CIWA - CIWA Score Nausea/Vomitin-No Nausea/No Vomiting Muscle Tremors: None Anxiety: 1-Mildly Anxious Agitation: 0-Normal Activity Paroxysmal Sweats: No Perspiration Orientation: 0-Oriented Tacttile Disturbances: 0-None Auditory Disturbances: 0-None Visual Disturbances: 0-None Headache: 0-None Present CIWA-Ar Total Score: 1 S Progress Note (SOAP) Subjective: alert,no complaint Objective: 12/01/19 14:21 Vital Signs Temperature 97.0 F L 12/01/19 08:47 Pulse Rate 73 12/01/19 08:47 Respiratory Rate 20 12/01/19 08:47 Blood Pressure 92/60 12/01/19 08:47 O2 Sat by Pulse Oximetry (%) 97 12/01/19 08:47 Assessment: 12/01/19 14:21 detox completed,no withdrawal symptom Plan: stable for discharge today,follow up with after care program [facility] as arrangement
--- NOTE | 2019-12-01 08:48 | DS ---
[facility] Detox Discharge Summary Admission Date: 11/26/19 Discharge Date: 12/01/19 - History Present History: Alcohol Dependence, Cocaine Dependence Additional Comments: alert,oriented x 3 ambulation on the unit lung clear on auscultation bilaterally abdomen soft,no pain,no tenderness no edema of legs no withdrawal symptom stable for discharge today follow up with after care program [facility] as arrangement total time spending on discharge 35 minutes Pertinent Past History: gerd lacearation of face with stitches anxiety and depression - Physical Exam Results Vital Signs: Vital Signs Temperature 98.2 F 12/01/19 06:29 Pulse Rate 68 12/01/19 06:29 Respiratory Rate 18 12/01/19 06:29 Blood Pressure 99/58 L 12/01/19 06:29 O2 Sat by Pulse Oximetry (%) 97 12/01/19 06:29 Pertinent Admission Physical Exam Findings: withdrawal signs and symptom Laboratory Last Values WBC 4.0 K/mm3 (4.0-10.0) 11/27/19 07:50 RBC 3.47 M/mm3 (4.00-5.60) L 11/27/19 07:50 Hgb 11.1 GM/dL (11.7-16.9) L 11/27/19 07:50 Hct 32.3 % (35.4-49) L D 11/27/19 07:50 MCV 92.9 fl (80-96) 11/27/19 07:50 MCH 32.0 pg (25.7-33.7) 11/27/19 07:50 MCHC 34.5 g/dl (32.0-35.9) 11/27/19 07:50 RDW 13.5 % (11.9-15.9) 11/27/19 07:50 Plt Count 192 K/MM3 (134-434) D 11/27/19 07:50 MPV 8.1 fl (7.5-11.1) 11/27/19 07:50 Sodium 140 mmol/L (136-145) 11/27/19 07:50 Potassium 4.1 mmol/L (3.5-5.1) 11/27/19 07:50 Chloride 106 mmol/L (98-107) 11/27/19 07:50 Carbon Dioxide 30 mmol/L (21-32) 11/27/19 07:50 Anion Gap 4 MMOL/L (8-16) L 11/27/19 07:50 BUN 10.2 mg/dL (7-18) 11/27/19 07:50 Creatinine 0.7 mg/dL (0.55-1.3) 11/27/19 07:50 Est GFR (CKD-EPI)AfAm 141.70 11/27/19 07:50 Est GFR (CKD-EPI)NonAf 122.26 11/27/19 07:50 Random Glucose 95 mg/dL (74-106) 11/27/19 07:50 Calcium 8.4 mg/dL (8.5-10.1) L 11/27/19 07:50 Total Bilirubin 0.4 mg/dL (0.2-1) 11/27/19 07:50 AST 20 U/L (15-37) 11/27/19 07:50 ALT 20 U/L (13-61) 11/27/19 07:50 Alkaline Phosphatase 46 U/L (45-117) 11/27/19 07:50 Total Protein 5.9 g/dl (6.4-8.2) L 11/27/19 07:50 Albumin 3.0 g/dl (3.4-5.0) L 11/27/19 07:50 Syphilis Serology Non-reactive (NONREACTIVE) 11/27/19 07:50 COVID-19 (RADHA) Not detected (Not Detected) 11/27/19 08:20 - Treatment Hospital Course: Detox Protocol Followed, Detoxed Safely, Responded well, Discharged Condition Good, Rehab Referral Accepted Patient has Accepted a Rehab Referral to: [facility] - Medication Discharge Medications: Ambulatory Orders Gabapentin [Neurontin -] 800 mg PO TID 07/04/16 Famotidine [Pepcid -] 20 mg PO DAILY #30 mg 07/08/16 - Diagnosis (1) Alcohol dependence with uncomplicated withdrawal Current Visit: Yes Status: Acute (2) Depression Current Visit: Yes Status: Acute (3) Sutured skin wound Current Visit: Yes Status: Acute (4) Anxiety Current Visit: Yes Status: Chronic (5) Cocaine dependence Current Visit: Yes Status: Chronic Qualifiers: Substance use status: uncomplicated Qualified Code(s): F14.20 - Cocaine dependence, uncomplicated (6) Opioid dependence on agonist therapy Current Visit: Yes Status: Chronic - AMA Did Patient Leave Against Medical Advice: No
[2019-12-01] MEDS: NICOTINE 21 MG/24 HOURS TOPICAL PATCH TD SCH (10:33)
[2019-12-01] MEDS: BACITRACIN 0.9 GM PACKET TP SCH (10:33)
[2019-12-01] MEDS: PRENATAL VITAMINS W/ FOLIC ACID TABLET (FP) PO SCH (10:33)
[2019-12-01] MEDS: NICOTINE POLACRILEX 2 MG GUM BUC PRN ×2 (10:34→13:20)
[2019-12-01 17:12] VITALS: BP 101/56; PULSE 67; TEMP 98.4
[2019-12-02] MEDS ORDERED: FAMOTIDINE 20 MG TABLET PO SCH (10:00)
== END 2019-12-01 18:18 | disposition other institution (70) | DRG 773 ==
LOC: YASAS 16:22 → Y3N 20:02
PROVIDERS: ADMIT Allergy & Immunology; ATTEND Allergy & Immunology
PROC: HZ2ZZZZ Detoxification Services for Substance Abuse Treatment (ICD-10-PCS; principal; 2019-11-26)
DX: F10.230 Alcohol dependence with withdrawal, uncomplicated (principal); F11.20 Opioid dependence, uncomplicated; F14.20 Cocaine dependence, uncomplicated; F17.210 Nicotine dependence, cigarettes, uncomplicated; F19.24 Other psychoactive substance dependence with psychoactive substance-induced mood disorder; F41.9 Anxiety disorder, unspecified; F32.9 Major depressive disorder, single episode, unspecified; F90.9 Attention-deficit hyperactivity disorder, unspecified type; K21.9 Gastro-esophageal reflux disease without esophagitis; M54.5 Low back pain; G89.29 Other chronic pain; R23.8 Other skin changes; S01.411D Laceration without foreign body of right cheek and temporomandibular area, subsequent encounter; X99.1XXD Assault by knife, subsequent encounter
CPT/HCPCS: 36415; 80053; 85027; 86780; 93005; 93010; U0003

== ENCOUNTER 2022-01-29 13:00 | Inpatient (IN) | payer OTHER ==
[2022-01-29 15:24] VITALS: BMI 26.2
[2022-01-29] MEDS ORDERED: BISMUTH SUBSALICYLATE 524 MG/30 ML PO PRN (15:51)
[2022-01-29] MEDS ORDERED: ACETAMINOPHEN 325 MG TABLET (FP) PO PRN ×2 (15:51)
[2022-01-29] MEDS ORDERED: BENZOCAINE/MENTHOL (CHLORASEPTIC ) LOZENGE MM PRN (15:51)
[2022-01-29] MEDS ORDERED: IBUPROFEN 600 MG TABLET (FP) PO PRN (15:51)
[2022-01-29] MEDS ORDERED: NALOXONE HCL (KLOXXADO) 8 MG SPRAY NS PRN (15:51)
[2022-01-29] MEDS ORDERED: MAGNESIUM HYDROX 2400MG/30ML ORAL SUSPENSION 30 ML CUP PO PRN (15:51)
[2022-01-29] MEDS ORDERED: DICYCLOMINE HCL 10 MG CAPSULE PO PRN (15:51)
[2022-01-29] MEDS ORDERED: ONDANSETRON *ODT* 4 MG TABLET SL PRN (15:51)
[2022-01-29] MEDS ORDERED: POLYETHYLENE GLYCOL (HEALTHYLAX) 3350 17 GM PACKET PO PRN (15:51)
[2022-01-29] MEDS ORDERED: IBUPROFEN 400 MG TABLET (FP) PO PRN (15:51)
[2022-01-29] MEDS ORDERED: MAG HYDROX/AL HYDROX/SIMETH 30 ML UNIT-DOSE CUP PO PRN (15:51)
[2022-01-29] MEDS ORDERED: LOPERAMIDE HCL 2 MG CAPSULE PO PRN (15:51)
[2022-01-29] MEDS ORDERED: methaDONE HCL 10 MG TABLET (FOR DETOX USE ONLY) PO ONE (17:15)
[2022-01-29] MEDS: PRENATAL VITAMINS W/ FOLIC ACID TABLET (FP) PO SCH (17:40)
[2022-01-29] MEDS: hydrOXYzine PAMOATE 25 MG CAPSULE (FP) PO PRN (17:40)
[2022-01-29] MEDS: NICOTINE 14 MG/24 HOURS TOPICAL PATCH TD SCH (17:42)
[2022-01-29] MEDS ORDERED: MELATONIN 5 MG TABLETS PO SCH (22:00)
[2022-01-29] MEDS: GABAPENTIN 300 MG CAPSULE PO SCH (22:26)
[2022-01-29] MEDS: THIAMINE HCL 100 MG TABLET (FP) PO SCH (22:26)
[2022-01-30] MEDS: GABAPENTIN 300 MG CAPSULE PO SCH ×3 (05:12→22:18)
[2022-01-30 09:36] LABS: HEMOGLOBIN 11.2 GM/dL (11.7-16.9); MCH 32.2 pg (25.7-33.7); MEAN CELL VOLUME 91.9 fl (80-96); PLATELET COUNT 214 10^3/uL (134-434); RBC 3.48 M/mm3 (4.00-5.60); RDW 15.1 % (11.9-15.9); WHITE BLOOD COUNT 4.2 K/mm3 (4.0-10.0)
[2022-01-30 09:48] LABS: ALBUMIN 3.1 g/dl (3.4-5.0)
[2022-01-30 09:53] LABS: CALCIUM 8.2 mg/dL (8.5-10.1)
[2022-01-30 09:54] LABS: BLOOD UREA NITROGEN 13.1 mg/dL (7-18)
[2022-01-30 09:56] LABS: CREATININE 0.7 mg/dL (0.55-1.3)
[2022-01-30 09:58] LABS: BILIRUBIN,TOTAL 0.5 mg/dL (0.2-1)
[2022-01-30 10:04] LABS: TOT PROT 5.9 g/dl (6.4-8.2)
[2022-01-30] MEDS: METHOCARBAMOL 500 MG TABLET PO PRN ×2 (10:33→22:19)
[2022-01-30] MEDS: PRENATAL VITAMINS W/ FOLIC ACID TABLET (FP) PO SCH (10:33)
[2022-01-30] MEDS: FAMOTIDINE 20 MG TABLET PO SCH (10:34)
[2022-01-30] MEDS: NICOTINE 14 MG/24 HOURS TOPICAL PATCH TD SCH (10:35)
[2022-01-30] MEDS: NICOTINE 10 MG CARTRIDGE (INHALER) IH PRN (10:36)
[2022-01-30] MEDS: cloNIDine HCL 0.1 MG TABLET PO PRN (12:35)
[2022-01-30] MEDS: THIAMINE HCL 100 MG TABLET (FP) PO SCH (22:18)
[2022-01-30] MEDS: SUVOREXANT 10 MG TABLET PO PRN (22:20)
[2022-01-30] MEDS: hydrOXYzine PAMOATE 25 MG CAPSULE (FP) PO PRN (22:21)
[2022-01-31] MEDS: GABAPENTIN 300 MG CAPSULE PO SCH ×3 (05:43→22:18)
[2022-01-31] MEDS: hydrOXYzine PAMOATE 25 MG CAPSULE (FP) PO PRN ×2 (05:43→13:53)
[2022-01-31] MEDS: METHOCARBAMOL 500 MG TABLET PO PRN ×2 (05:43→13:52)
[2022-01-31] MEDS ORDERED: methaDONE HCL 10 MG TABLET (FOR DETOX USE ONLY) PO ONE (10:00)
[2022-01-31] MEDS: PRENATAL VITAMINS W/ FOLIC ACID TABLET (FP) PO SCH (10:25)
[2022-01-31] MEDS: FAMOTIDINE 20 MG TABLET PO SCH (10:25)
[2022-01-31] MEDS: cloNIDine HCL 0.1 MG TABLET PO PRN ×2 (10:28→17:34)
[2022-01-31] MEDS: NICOTINE 10 MG CARTRIDGE (INHALER) IH PRN (10:29)
[2022-01-31] MEDS: NICOTINE 14 MG/24 HOURS TOPICAL PATCH TD SCH (10:29)
[2022-01-31] MEDS: THIAMINE HCL 100 MG TABLET (FP) PO SCH (22:18)
[2022-01-31] MEDS: SUVOREXANT 10 MG TABLET PO PRN (22:19)
[2022-02-01] MEDS: GABAPENTIN 300 MG CAPSULE PO SCH ×3 (05:49→22:10)
[2022-02-01] MEDS: hydrOXYzine PAMOATE 25 MG CAPSULE (FP) PO PRN (05:50)
[2022-02-01] MEDS: PRENATAL VITAMINS W/ FOLIC ACID TABLET (FP) PO SCH (10:27)
[2022-02-01] MEDS: NICOTINE 10 MG CARTRIDGE (INHALER) IH PRN (10:28)
[2022-02-01] MEDS: NICOTINE 14 MG/24 HOURS TOPICAL PATCH TD SCH (10:28)
[2022-02-01] MEDS: FAMOTIDINE 20 MG TABLET PO SCH (10:31)
[2022-02-01] MEDS: chlordiazePOXIDE HCL 10 MG CAPSULE PO SCH ×3 (11:47→22:11)
[2022-02-01] MEDS: DOXYCYCLINE HYCLATE 100 MG TABLET PO SCH (19:37)
[2022-02-01] MEDS ORDERED: DOXYCYCLINE HYCLATE 100 MG CAPSULE PO SCH ×2 (20:00→22:00)
[2022-02-01] MEDS ORDERED: GABAPENTIN 400 MG CAPSULE PO SCH (22:00)
[2022-02-01] MEDS: SUVOREXANT 10 MG TABLET PO PRN (22:10)
[2022-02-01] MEDS: THIAMINE HCL 100 MG TABLET (FP) PO SCH (22:11)
[2022-02-02] MEDS: GABAPENTIN 300 MG CAPSULE PO SCH ×3 (05:47→22:45)
[2022-02-02] MEDS: chlordiazePOXIDE HCL 10 MG CAPSULE PO SCH ×2 (05:48→17:31)
[2022-02-02] MEDS ORDERED: methaDONE HCL 10 MG TABLET (FOR DETOX USE ONLY) PO ONE (10:00)
[2022-02-02] MEDS: METHOCARBAMOL 500 MG TABLET PO PRN (10:25)
[2022-02-02] MEDS: PRENATAL VITAMINS W/ FOLIC ACID TABLET (FP) PO SCH (10:25)
[2022-02-02] MEDS: FAMOTIDINE 20 MG TABLET PO SCH (10:25)
[2022-02-02] MEDS: DOXYCYCLINE HYCLATE 100 MG TABLET PO SCH ×2 (10:25→17:31)
[2022-02-02] MEDS: hydrOXYzine PAMOATE 25 MG CAPSULE (FP) PO PRN ×3 (10:26→22:46)
[2022-02-02] MEDS: NICOTINE 10 MG CARTRIDGE (INHALER) IH PRN (10:27)
[2022-02-02] MEDS: NICOTINE 14 MG/24 HOURS TOPICAL PATCH TD SCH (10:27)
[2022-02-02] MEDS: THIAMINE HCL 100 MG TABLET (FP) PO SCH (22:45)
[2022-02-02] MEDS ORDERED: SUVOREXANT 10 MG TABLET PO ONE (23:00)
[2022-02-03] MEDS ORDERED: chlordiazePOXIDE HCL 10 MG CAPSULE PO ONE (05:00)
[2022-02-03] MEDS: GABAPENTIN 300 MG CAPSULE PO SCH (05:47)
[2022-02-03 09:40] VITALS: BP 127/71; PULSE 85; RESP 16; TEMP 96.8
[2022-02-03] MEDS: PRENATAL VITAMINS W/ FOLIC ACID TABLET (FP) PO SCH (09:43)
[2022-02-03] MEDS: FAMOTIDINE 20 MG TABLET PO SCH (09:43)
[2022-02-03] MEDS: NICOTINE 14 MG/24 HOURS TOPICAL PATCH TD SCH (09:43)
[2022-02-03] MEDS: DOXYCYCLINE HYCLATE 100 MG TABLET PO SCH (09:43)
[2022-02-03] MEDS: hydrOXYzine PAMOATE 25 MG CAPSULE (FP) PO PRN (09:46)
== END 2022-02-03 11:43 | disposition home or self-care (01) | DRG 773 ==
LOC: YASAS 13:00 → Y6N 16:55
PROVIDERS: ADMIT Allergy & Immunology; ATTEND Surgery
PROC: HZ2ZZZZ Detoxification Services for Substance Abuse Treatment (ICD-10-PCS; principal; 2022-01-29)
DX: F11.23 Opioid dependence with withdrawal (principal); F10.230 Alcohol dependence with withdrawal, uncomplicated; F14.20 Cocaine dependence, uncomplicated; F17.210 Nicotine dependence, cigarettes, uncomplicated; F19.282 Other psychoactive substance dependence with psychoactive substance-induced sleep disorder; F19.280 Other psychoactive substance dependence with psychoactive substance-induced anxiety disorder; F19.24 Other psychoactive substance dependence with psychoactive substance-induced mood disorder; F41.9 Anxiety disorder, unspecified; G40.909 Epilepsy, unspecified, not intractable, without status epilepticus; G47.00 Insomnia, unspecified; Z62.810 Personal history of physical and sexual abuse in childhood; Z91.410 Personal history of adult physical and sexual abuse; Z86.19 Personal history of other infectious and parasitic diseases; Z28.310 Unvaccinated for COVID-19; Z28.9 Immunization not carried out for unspecified reason; Z56.0 Unemployment, unspecified; Z59.00 Homelessness unspecified
CPT/HCPCS: 36415; 80053; 85027; 86780; C9803-CS; Q0162; U0003; U0005

== ENCOUNTER 2022-05-25 14:07 | Inpatient (IN) | payer OTHER ==
[2022-05-25 14:38] VITALS: BMI 26.5
[2022-05-25] MEDS ORDERED: cloNIDine HCL 0.1 MG TABLET PO PRN (15:37)
[2022-05-25] MEDS ORDERED: ONDANSETRON *ODT* 4 MG TABLET SL PRN (15:37)
[2022-05-25] MEDS ORDERED: LOPERAMIDE HCL 2 MG CAPSULE PO PRN (15:37)
[2022-05-25] MEDS ORDERED: POLYETHYLENE GLYCOL (HEALTHYLAX) 3350 17 GM PACKET PO PRN (15:37)
[2022-05-25] MEDS ORDERED: BISMUTH SUBSALICYLATE 524 MG/30 ML PO PRN (15:37)
[2022-05-25] MEDS ORDERED: BENZOCAINE/MENTHOL (CHLORASEPTIC ) LOZENGE MM PRN (15:37)
[2022-05-25] MEDS ORDERED: NALOXONE HCL 0.4 MG/ML VIAL IM PRN (15:37)
[2022-05-25] MEDS ORDERED: BENZONATATE 200 MG CAPSULE PO PRN (15:37)
[2022-05-25] MEDS ORDERED: DICYCLOMINE HCL 10 MG CAPSULE PO PRN (15:37)
[2022-05-25] MEDS ORDERED: MAG HYDROX/AL HYDROX/SIMETH 30 ML UNIT-DOSE CUP PO PRN (15:37)
[2022-05-25] MEDS ORDERED: NALOXONE HCL (KLOXXADO) 8 MG SPRAY NS PRN (15:37)
[2022-05-25] MEDS ORDERED: MAGNESIUM HYDROX 2400MG/30ML ORAL SUSPENSION 30 ML CUP PO PRN (15:37)
[2022-05-25] MEDS ORDERED: guaiFENesin 600 MG TABLET.ER (FP) PO PRN (15:37)
[2022-05-25] MEDS ORDERED: ONDANSETRON *ODT* 4 MG TABLET ONE (16:09)
[2022-05-25] MEDS: diazePAM 5 MG TABLET PO PRN (16:13)
[2022-05-25] MEDS ORDERED: diazePAM 5 MG TABLET ONE (17:02)
[2022-05-25] MEDS: diazePAM 5 MG TABLET PO SCH ×2 (17:11→22:31)
[2022-05-25] MEDS ORDERED: methaDONE HCL 10 MG TABLET (FOR DETOX USE ONLY) PO ONE (17:15)
[2022-05-25] MEDS: PRENATAL VITAMINS W/ FOLIC ACID TABLET (FP) PO SCH (17:21)
[2022-05-25] MEDS: THIAMINE HCL 100 MG TABLET (FP) PO SCH (22:31)
[2022-05-25] MEDS: MELATONIN 5 MG TABLETS PO SCH (22:31)
[2022-05-25] MEDS: GABAPENTIN 300 MG CAPSULE PO SCH (22:31)
[2022-05-26] MEDS: diazePAM 5 MG TABLET PO SCH ×4 (05:27→22:39)
[2022-05-26] MEDS: GABAPENTIN 300 MG CAPSULE PO SCH ×3 (05:28→22:27)
[2022-05-26] MEDS: IBUPROFEN 600 MG TABLET (FP) PO PRN (05:30)
[2022-05-26] MEDS: NICOTINE 10 MG CARTRIDGE (INHALER) IH PRN ×4 (05:44→22:37)
[2022-05-26] MEDS ORDERED: methaDONE HCL 40 MG DISPERSABLE TABLET PO ONE (06:00)
[2022-05-26] MEDS: diazePAM 5 MG TABLET PO PRN ×2 (09:08→19:46)
[2022-05-26] MEDS: PRENATAL VITAMINS W/ FOLIC ACID TABLET (FP) PO SCH (10:15)
[2022-05-26] MEDS: FAMOTIDINE 20 MG TABLET PO SCH (10:15)
[2022-05-26] MEDS: hydrOXYzine PAMOATE 25 MG CAPSULE (FP) PO PRN (14:03)
[2022-05-26] MEDS: ACETAMINOPHEN 325 MG TABLET (FP) PO PRN (19:47)
[2022-05-26] MEDS: THIAMINE HCL 100 MG TABLET (FP) PO SCH (22:27)
[2022-05-26] MEDS: MELATONIN 5 MG TABLETS PO SCH (22:27)
[2022-05-26] MEDS: METHOCARBAMOL 500 MG TABLET PO PRN (22:29)
[2022-05-27] MEDS: METHOCARBAMOL 500 MG TABLET PO PRN ×3 (05:58→22:14)
[2022-05-27] MEDS: hydrOXYzine PAMOATE 25 MG CAPSULE (FP) PO PRN ×2 (05:58→13:51)
[2022-05-27] MEDS: GABAPENTIN 300 MG CAPSULE PO SCH ×3 (05:58→22:12)
[2022-05-27] MEDS: IBUPROFEN 400 MG TABLET (FP) PO PRN (05:59)
[2022-05-27] MEDS ORDERED: diazePAM 5 MG TABLET PO SCH (06:00)
[2022-05-27] MEDS: NICOTINE 10 MG CARTRIDGE (INHALER) IH PRN ×5 (06:23→22:16)
[2022-05-27] MEDS: chlordiazePOXIDE HCL 25 MG CAPSULE PO PRN ×3 (09:46→20:54)
[2022-05-27] MEDS: PRENATAL VITAMINS W/ FOLIC ACID TABLET (FP) PO SCH (09:47)
[2022-05-27] MEDS: methaDONE HCL 40 MG DISPERSABLE TABLET PO SCH (09:47)
[2022-05-27] MEDS: FAMOTIDINE 20 MG TABLET PO SCH (09:47)
[2022-05-27] MEDS ORDERED: methaDONE HCL 10 MG TABLET (FOR DETOX USE ONLY) PO ONE (10:00)
[2022-05-27] MEDS: chlordiazePOXIDE HCL 25 MG CAPSULE PO SCH ×3 (10:11→23:24)
[2022-05-27] MEDS: NICOTINE POLACRILEX 2 MG GUM BUC PRN ×4 (11:21→22:16)
[2022-05-27 11:44] LABS: HEMATOCRIT 34.3 % (35.4-49); HEMOGLOBIN 12.1 GM/dL (11.7-16.9); MCH 29.8 pg (25.7-33.7); MCHC 35.2 g/dl (32.0-35.9); MEAN CELL VOLUME 84.7 fl (80-96); MEAN PLT VOLUME 7.8 fl (7.5-11.1); PLATELET COUNT 165 10^3/uL (134-434); RBC 4.05 M/mm3 (4.00-5.60); RDW 13.1 % (11.9-15.9); WHITE BLOOD COUNT 3.5 K/mm3 (4.0-10.0)
[2022-05-27 12:04] LABS: CALCIUM 8.6 mg/dL (8.5-10.1)
[2022-05-27 12:05] LABS: ALBUMIN 3.7 g/dl (3.4-5.0); BLOOD UREA NITROGEN 11.4 mg/dL (7-18)
[2022-05-27 12:08] LABS: CREATININE 0.7 mg/dL (0.55-1.3)
[2022-05-27 12:09] LABS: BILIRUBIN,TOTAL 0.9 mg/dL (0.2-1); TOT PROT 6.9 g/dl (6.4-8.2)
[2022-05-27] MEDS: NICOTINE 14 MG/24 HOURS TOPICAL PATCH TD SCH (12:22)
[2022-05-27] MEDS: ACETAMINOPHEN 325 MG TABLET (FP) PO PRN ×2 (13:33→22:14)
[2022-05-27] MEDS: IBUPROFEN 600 MG TABLET (FP) PO PRN (17:43)
[2022-05-27] MEDS: THIAMINE HCL 100 MG TABLET (FP) PO SCH (22:12)
[2022-05-27] MEDS: MELATONIN 5 MG TABLETS PO SCH (22:12)
[2022-05-28] MEDS ORDERED: chlordiazePOXIDE HCL 10 MG CAPSULE PO PRN (05:00)
[2022-05-28] MEDS: GABAPENTIN 300 MG CAPSULE PO SCH ×3 (05:31→22:43)
[2022-05-28] MEDS: methaDONE HCL 40 MG DISPERSABLE TABLET PO SCH (05:31)
[2022-05-28] MEDS: chlordiazePOXIDE HCL 10 MG CAPSULE PO SCH ×4 (05:32→22:43)
[2022-05-28] MEDS ORDERED: diazePAM 5 MG TABLET PO SCH (06:00)
[2022-05-28] MEDS: hydrOXYzine PAMOATE 25 MG CAPSULE (FP) PO PRN (08:41)
[2022-05-28] MEDS: METHOCARBAMOL 500 MG TABLET PO PRN ×2 (08:41→17:32)
[2022-05-28] MEDS: NICOTINE POLACRILEX 2 MG GUM BUC PRN ×4 (08:43→22:45)
[2022-05-28] MEDS: FAMOTIDINE 20 MG TABLET PO SCH (10:13)
[2022-05-28] MEDS: NICOTINE 14 MG/24 HOURS TOPICAL PATCH TD SCH (10:13)
[2022-05-28] MEDS: PRENATAL VITAMINS W/ FOLIC ACID TABLET (FP) PO SCH (10:13)
[2022-05-28] MEDS: NICOTINE 10 MG CARTRIDGE (INHALER) IH PRN ×2 (11:05→17:32)
[2022-05-28] MEDS: ACETAMINOPHEN 325 MG TABLET (FP) PO PRN (17:32)
[2022-05-28] MEDS: THIAMINE HCL 100 MG TABLET (FP) PO SCH (22:43)
[2022-05-28] MEDS: MELATONIN 5 MG TABLETS PO SCH (22:43)
[2022-05-29] MEDS: GABAPENTIN 300 MG CAPSULE PO SCH ×3 (05:26→23:45)
[2022-05-29] MEDS: chlordiazePOXIDE HCL 10 MG CAPSULE PO SCH ×2 (05:27→17:32)
[2022-05-29] MEDS: hydrOXYzine PAMOATE 25 MG CAPSULE (FP) PO PRN ×2 (05:27→13:39)
[2022-05-29] MEDS: METHOCARBAMOL 500 MG TABLET PO PRN ×2 (05:27→14:54)
[2022-05-29] MEDS: IBUPROFEN 400 MG TABLET (FP) PO PRN (05:28)
[2022-05-29] MEDS: methaDONE HCL 40 MG DISPERSABLE TABLET PO SCH (05:28)
[2022-05-29] MEDS: NICOTINE POLACRILEX 2 MG GUM BUC PRN ×3 (05:55→13:42)
[2022-05-29] MEDS ORDERED: diazePAM 5 MG TABLET PO ONE (06:00)
[2022-05-29] MEDS ORDERED: methaDONE HCL 10 MG TABLET (FOR DETOX USE ONLY) PO ONE (10:00)
[2022-05-29] MEDS: NICOTINE 14 MG/24 HOURS TOPICAL PATCH TD SCH (10:21)
[2022-05-29] MEDS: PRENATAL VITAMINS W/ FOLIC ACID TABLET (FP) PO SCH (10:21)
[2022-05-29] MEDS: FAMOTIDINE 20 MG TABLET PO SCH (10:21)
[2022-05-29] MEDS: NICOTINE 10 MG CARTRIDGE (INHALER) IH PRN (13:41)
[2022-05-29] MEDS: ACETAMINOPHEN 325 MG TABLET (FP) PO PRN (14:54)
[2022-05-29] MEDS: MELATONIN 5 MG TABLETS PO SCH (23:45)
[2022-05-29] MEDS: THIAMINE HCL 100 MG TABLET (FP) PO SCH (23:46)
[2022-05-30] MEDS ORDERED: chlordiazePOXIDE HCL 10 MG CAPSULE PO ONE (05:00)
[2022-05-30] MEDS: IBUPROFEN 400 MG TABLET (FP) PO PRN (05:31)
[2022-05-30] MEDS: GABAPENTIN 300 MG CAPSULE PO SCH (05:31)
[2022-05-30] MEDS: methaDONE HCL 40 MG DISPERSABLE TABLET PO SCH (05:32)
[2022-05-30] MEDS: METHOCARBAMOL 500 MG TABLET PO PRN (05:32)
[2022-05-30] MEDS: NICOTINE 10 MG CARTRIDGE (INHALER) IH PRN (05:35)
[2022-05-30] MEDS: chlordiazePOXIDE HCL 10 MG CAPSULE PO SCH (06:14)
[2022-05-30] MEDS: NICOTINE 14 MG/24 HOURS TOPICAL PATCH TD SCH (09:57)
[2022-05-30] MEDS: FAMOTIDINE 20 MG TABLET PO SCH (09:57)
[2022-05-30] MEDS: PRENATAL VITAMINS W/ FOLIC ACID TABLET (FP) PO SCH (09:57)
[2022-05-30 10:28] VITALS: BP 129/81; PULSE 79; RESP 17; TEMP 97.5
== END 2022-05-30 11:47 | disposition other institution (70) | DRG 773 ==
LOC: YASAS 14:07 → Y3N 15:19
PROVIDERS: ADMIT Allergy & Immunology; ATTEND Surgery
PROC: HZ2ZZZZ Detoxification Services for Substance Abuse Treatment (ICD-10-PCS; principal; 2022-05-25)
DX: F11.23 Opioid dependence with withdrawal (principal); F10.230 Alcohol dependence with withdrawal, uncomplicated; F14.20 Cocaine dependence, uncomplicated; F17.210 Nicotine dependence, cigarettes, uncomplicated; F19.24 Other psychoactive substance dependence with psychoactive substance-induced mood disorder; F41.9 Anxiety disorder, unspecified; F32.A Depression, unspecified; K21.9 Gastro-esophageal reflux disease without esophagitis
CPT/HCPCS: 36415; 80053; 85027; 86780; 93005; 93010; C9803-CS; Q0162; U0003; U0005

== ENCOUNTER 2023-04-23 17:57 | Inpatient (IN) | payer OTHER ==
[2023-04-23 19:15] VITALS: BMI 26.5
[2023-04-24] MEDS: diazePAM 5 MG TABLET PO ONE (00:33)
[2023-04-24] MEDS: diphenhydrAMINE HCL 25 MG CAPSULE (FP) PO ONE (00:34)
[2023-04-24] MEDS ORDERED: diazePAM 5 MG TABLET ONE (00:35)
[2023-04-24] MEDS: diazePAM 5 MG TABLET PO SCH (00:40)
[2023-04-24] MEDS ORDERED: methaDONE HCL 10 MG TABLET PO SCH (09:00)
[2023-04-24] MEDS ORDERED: IBUPROFEN 600 MG TABLET (FP) PO PRN (09:07)
[2023-04-24] MEDS ORDERED: LOPERAMIDE HCL 2 MG CAPSULE PO PRN (09:07)
[2023-04-24] MEDS ORDERED: NALOXONE HCL 0.4 MG/ML VIAL IM PRN (09:07)
[2023-04-24] MEDS ORDERED: BENZONATATE 200 MG CAPSULE PO PRN (09:07)
[2023-04-24] MEDS ORDERED: NICOTINE POLACRILEX 2 MG GUM BUC PRN (09:07)
[2023-04-24] MEDS ORDERED: MAG HYDROX/AL HYDROX/SIMETH 30 ML UNIT-DOSE CUP PO PRN (09:07)
[2023-04-24] MEDS ORDERED: ONDANSETRON *ODT* 4 MG TABLET SL PRN (09:07)
[2023-04-24] MEDS ORDERED: guaiFENesin 600 MG TABLET.ER (FP) PO PRN (09:07)
[2023-04-24] MEDS ORDERED: POLYETHYLENE GLYCOL (HEALTHYLAX) 3350 17 GM PACKET PO PRN (09:07)
[2023-04-24] MEDS ORDERED: BENZOCAINE/MENTHOL (CHLORASEPTIC ) LOZENGE MM PRN (09:07)
[2023-04-24] MEDS ORDERED: BISMUTH SUBSALICYLATE 262 MG/15 ML BTL PO PRN (09:07)
[2023-04-24] MEDS ORDERED: IBUPROFEN 400 MG TABLET (FP) PO PRN (09:07)
[2023-04-24] MEDS ORDERED: DICYCLOMINE HCL 10 MG CAPSULE PO PRN (09:07)
[2023-04-24] MEDS ORDERED: MAGNESIUM HYDROX 2400MG/30ML ORAL SUSPENSION 30 ML CUP PO PRN (09:07)
[2023-04-24] MEDS ORDERED: NALOXONE HCL (KLOXXADO) 8 MG SPRAY NS PRN (09:07)
[2023-04-24] MEDS: PRENATAL VITAMINS W/ FOLIC ACID TABLET (FP) PO SCH (09:25)
[2023-04-24] MEDS: NICOTINE 21 MG/24 HOURS TOPICAL PATCH TD SCH (09:26)
[2023-04-24] MEDS: hydrOXYzine PAMOATE 25 MG CAPSULE (FP) PO PRN (17:34)
[2023-04-24] MEDS: MELATONIN 5 MG TABLETS PO SCH (22:34)
[2023-04-24] MEDS: THIAMINE HCL 100 MG TABLET (FP) PO SCH (22:34)
[2023-04-25] MEDS: diazePAM 5 MG TABLET PO SCH (05:16)
[2023-04-25] MEDS: diazePAM 5 MG TABLET PO PRN (09:41)
[2023-04-25 10:46] LABS: HEMATOCRIT 35.5 % (35.4-49); HEMOGLOBIN 12.5 GM/dL (11.7-16.9); MCH 29.6 pg (25.7-33.7); MCHC 35.1 g/dl (32.0-35.9); MEAN CELL VOLUME 84.3 fl (80-96); MEAN PLT VOLUME 7.9 fl (7.5-11.1); PLATELET COUNT 206 10^3/uL (134-434); RBC 4.22 M/mm3 (4.00-5.60); RDW 13.2 % (11.9-15.9); WHITE BLOOD COUNT 5.1 K/mm3 (4.0-10.0)
[2023-04-25 12:44] LABS: POTASSIUM 4.1 mmol/L (3.5-5.1)
[2023-04-25 12:45] LABS: ALBUMIN 3.6 g/dl (3.4-5.0); CALCIUM 8.7 mg/dL (8.5-10.1)
[2023-04-25 12:47] LABS: BLOOD UREA NITROGEN 13.1 mg/dL (7-18)
[2023-04-25 12:49] LABS: CREATININE 0.7 mg/dL (0.55-1.3)
[2023-04-25 12:51] LABS: BILIRUBIN,TOTAL 0.5 mg/dL (0.2-1)
[2023-04-25] MEDS: ACETAMINOPHEN 325 MG TABLET (FP) PO PRN (17:36)
[2023-04-25] MEDS: METHOCARBAMOL 500 MG TABLET PO PRN (22:25)
[2023-04-26] MEDS ORDERED: INSULIN ASPART SLIDING SCALE (NOVOLOG) 1 VIAL SQ ONE (05:07)
[2023-04-26] MEDS: diazePAM 5 MG TABLET PO SCH (05:39)
[2023-04-27] MEDS: diazePAM 5 MG TABLET PO ONE (05:30)
[2023-04-27 09:05] VITALS: BP 109/60; PULSE 60; RESP 20; TEMP 97.8
== END 2023-04-27 10:38 | disposition home or self-care (01) | DRG 773 ==
LOC: YASAS 17:57 → Y3N 04-24 01:26
PROVIDERS: ADMIT Allergy & Immunology; ATTEND Surgery
PROC: HZ2ZZZZ Detoxification Services for Substance Abuse Treatment (ICD-10-PCS; principal; 2023-04-24)
DX: F10.230 Alcohol dependence with withdrawal, uncomplicated (principal); F11.20 Opioid dependence, uncomplicated; F14.20 Cocaine dependence, uncomplicated; F15.20 Other stimulant dependence, uncomplicated; F17.210 Nicotine dependence, cigarettes, uncomplicated
CPT/HCPCS: 36415; 80053; 80307; 85027; 86780; 87635